=== PATIENT | female | born 1965 | race Caucasian/White ===

== ENCOUNTER 2017-10-12 13:08 | Emergency (ER) | payer SELFPAY ==
[2017-10-12 14:24] LABS: #Basophils 0.1 thou/uL (0.0-0.2); #Eosinphils 0.7 thou/uL (0.0-0.7); #Lymphocytes 1.8 thou/uL (1.20-3.40); #Monocytes 0.5 thou/uL (0.11-0.59); #Neutrophils 5.3 thou/uL (1.40-6.50); %Basophils 1.1 % (0.0-1.0); %Lymphocytes 21.1 % (21.0-51.0); %Monocytes 6.2 % (0.0-10.0); %Neutrophils 63.7 % (42.0-75.0); Mean Corpuscular Hemoglobin 32.1 pg (27.0-31.0); Mean Corpuscular Volume 94.6 fL (78.0-98.0); Mean Platelet Volume 8.5 fL (7.4-10.4); Platelet Count 239 thou/uL (130-400); RBC Distribution Width 12.3 % (11.5-14.5); Red Blood Cell (RBC) Count 4.68 mill/uL (4.20-5.40); White Blood Cell (WBC) Count 8.4 thou/uL (4.8-10.8)
[2017-10-12 14:30] LABS: PTT 28.5 SEC (22.9-36.1); Prothrombin Time 12.9 SEC (12.0-14.7)
[2017-10-12 14:40] LABS: ALT (SGPT) 58 U/L (8-55); AST (SGOT) 38 U/L (5-34); Albumin 4.5 g/dL (3.5-5.0); Alkaline Phosphatase 136 U/L (40-150); Anion Gap 11 mmol/L (10-20); BUN (Urea Nitrogen) 12 mg/dL (9.8-20.1); Bilirubin, Total 0.7 mg/dL (0.2-1.2); Calc. Creatinine Clearance 0 mL/min (70-130); Calcium 9.7 mg/dL (7.8-10.44); Carbon Dioxide 26 mmol/L (22-29); Chloride 105 mmol/L (98-107); Estimated GFR-MDRD 65; Globulin 3.3 g/dL (2.4-3.5); Glucose 97 mg/dL (70-105); Potassium 3.8 mmol/L (3.5-5.1); Protein, Total 7.8 g/dL (6.0-8.3); Sodium 138 mmol/L (136-145)
--- NOTE | 2017-10-12 17:00 | ULT ---
ULTRASOUND PELVIC ULTRASOUND TRANSVAGINAL DOPPLER DUPLEX: 10/12/2017 HISTORY: A 52-year-old female with left pelvic pain and menorrhagia. History of abnormal Pap smear. COMPARISON: None. TECHNIQUE: Transabdominal transducer used to evaluate intrapelvic contents using the urinary bladder as an acous tic window. Endovaginal transducer used to visualize intrapelvic contents in greater detail. Color fl ow Doppler and Pulsed Doppler spectral waveform analysis of ovaries. FINDINGS: The bilateral ovaries are not visualized. The uterus measures 12.5 x 6.5 x 7.5 cm. The endometrial stripe is 1.3 cm (13 mm). No definite uterine leiomyoma is visualized. No free fluid in the cul-de-sac. There are multiple tiny hyperechoic foci in the cervix. The largest of these is approximately 0.7 x 0.7 x 0.3 cm. There is also mildly increased blood flow in the parenchyma of the cervix. IMPRESSION: 1. A 13 mm endometrial stripe. 2. Bilateral ovaries are not visualized. 3. Nonspecific findings at the cervix. Recommend refuse laborer consultation for direct visualization of th e cervix. JERZY Mccain POS: ANGELIKA
[2017-10-12] MEDS ORDERED: Ketorolac Tromethamine 60 MG/2 ML VIAL ONE (17:35)
== END 2017-10-12 17:55 | disposition home or self-care (01) ==
LOC: ERS 13:08
DX: N93.8 Other specified abnormal uterine and vaginal bleeding (principal); F32.9 Major depressive disorder, single episode, unspecified; I10 Essential (primary) hypertension
CPT/HCPCS: 76856; 80053; 85025; 85610; 85730; 86850; 86900; 86901; 94760; 96374; J1885

== ENCOUNTER 2017-12-11 10:48 | Emergency (ER) | payer SELFPAY ==
[2017-12-11 12:21] LABS: #Basophils 0.1 thou/uL (0.0-0.2); #Eosinphils 0.7 thou/uL (0.0-0.7); #Lymphocytes 1.4 thou/uL (1.20-3.40); #Monocytes 0.4 thou/uL (0.11-0.59); %Basophils 1.4 % (0.0-1.0); %Eosinophils 8.6 % (0.0-10.0); %Lymphocytes 16.1 % (21.0-51.0); %Monocytes 4.5 % (0.0-10.0); %Neutrophils 69.4 % (42.0-75.0); Hemoglobin 13.2 g/dL (12.0-16.0); Mean Corpuscular HGB CONC 31.8 g/dL (32.0-36.0); Mean Corpuscular Hemoglobin 29.9 pg (27.0-31.0); Mean Platelet Volume 9.1 fL (7.4-10.4); Platelet Count 313 thou/uL (130-400); RBC Distribution Width 12.5 % (11.5-14.5); Red Blood Cell (RBC) Count 4.41 mill/uL (4.20-5.40); White Blood Cell (WBC) Count 8.6 thou/uL (4.8-10.8)
[2017-12-11 12:22] LABS: ALT (SGPT) 25 U/L (8-55); AST (SGOT) 25 U/L (5-34); Albumin 4.5 g/dL (3.5-5.0); Alkaline Phosphatase 100 U/L (40-150); Anion Gap 14 mmol/L (10-20); BUN (Urea Nitrogen) 10 mg/dL (9.8-20.1); Bilirubin, Total 0.5 mg/dL (0.2-1.2); Calc. Creatinine Clearance 0 mL/min (70-130); Calcium 9.2 mg/dL (7.8-10.44); Carbon Dioxide 23 mmol/L (22-29); Chloride 106 mmol/L (98-107); Estimated GFR-MDRD 68; Globulin 3.3 g/dL (2.4-3.5); Glucose 113 mg/dL (70-105); Lipase 8 U/L (8-78); Potassium 3.1 mmol/L (3.5-5.1); Protein, Total 7.8 g/dL (6.0-8.3); Sodium 140 mmol/L (136-145)
--- NOTE | 2017-12-11 13:25 | CT ---
CT ABDOMEN AND PELVIS WITH IV AND ORAL CONTRAST: HISTORY: Pelvic pain and mass. FINDINGS: The lung bases are clear. The liver, spleen, kidneys, adrenal glands, and pancreas have a normal CT appearance. No enlarged lymph nodes or free fluid. The urinary bladder is unremarkable. Fluid distention of the endometrial cavity of the uterus is estimated at 1.3 cm in thickness. Fluid and gas are apparent within the upper vaginal canal. The appendix is not inflamed. No evidence of bowel obstruction. IMPRESSION: Fluid distention of the endometrial cavity. POS: ANGELIKA
[2017-12-11] MEDS ORDERED: Iopamidol 370 76% 50 ML VIAL FS ONE (15:04)
[2017-12-11] MEDS ORDERED: ISOVUE-370 76%-LOCM 1 ML ONE (15:04)
== END 2017-12-11 13:44 | disposition home or self-care (01) ==
LOC: ERS 10:48
DX: N93.9 Abnormal uterine and vaginal bleeding, unspecified (principal); C76.0 Malignant neoplasm of head, face and neck
CPT/HCPCS: 74177; 80053; 83690; 85025; 96374

== ENCOUNTER 2018-04-24 23:03 | Inpatient (IN) | payer SELFPAY ==
[2018-04-24] MEDS ORDERED: Morphine 4 MG/ML VIAL ONE (23:41)
[2018-04-25 00:03] LABS: #Basophils 0.1 thou/uL (0.0-0.2); #Eosinphils 0.2 thou/uL (0.0-0.7); #Lymphocytes 1.3 thou/uL (1.20-3.40); #Monocytes 0.4 thou/uL (0.11-0.59); #Neutrophils 9.3 thou/uL (1.40-6.50); %Eosinophils 1.6 % (0.0-10.0); %Lymphocytes 11.4 % (21.0-51.0); %Monocytes 3.3 % (0.0-10.0); %Neutrophils 82.6 % (42.0-75.0); Hemoglobin 9.5 g/dL (12.0-16.0); Mean Corpuscular HGB CONC 30.4 g/dL (32.0-36.0); Mean Corpuscular Hemoglobin 28.1 pg (27.0-31.0); Mean Corpuscular Volume 92.4 fL (78.0-98.0); Mean Platelet Volume 8.9 fL (7.4-10.4); Platelet Count 289 thou/uL (130-400); RBC Distribution Width 15.7 % (11.5-14.5); Red Blood Cell (RBC) Count 3.38 mill/uL (4.20-5.40); White Blood Cell (WBC) Count 11.3 thou/uL (4.8-10.8)
[2018-04-25 00:21] LABS: ALT (SGPT) 42 U/L (8-55); AST (SGOT) 35 U/L (5-34); Albumin 3.6 g/dL (3.5-5.0); Alkaline Phosphatase 100 U/L (40-150); Anion Gap 13 mmol/L (10-20); BUN (Urea Nitrogen) 20 mg/dL (9.8-20.1); Bilirubin, Total 0.2 mg/dL (0.2-1.2); Calc. Creatinine Clearance 0 mL/min (70-130); Calcium 8.3 mg/dL (7.8-10.44); Carbon Dioxide 20 mmol/L (22-29); Chloride 109 mmol/L (98-107); Estimated GFR-MDRD 74; Globulin 2.4 g/dL (2.4-3.5); Glucose 134 mg/dL (70-105); Potassium 3.4 mmol/L (3.5-5.1); Sodium 139 mmol/L (136-145)
[2018-04-25] MEDS ORDERED: Ketorolac Tromethamine 30 MG/ML VIAL ONE (01:54)
[2018-04-25 04:07] LABS: Hemoglobin 8.6 g/dL (12.0-16.0)
--- NOTE | 2018-04-25 06:08 | HP ---
PRIMARY CARE PHYSICIAN: Kassie Blue MD CHIEF COMPLAINT: Vaginal bleeding. HISTORY OF PRESENT ILLNESS: Ms. Kacy Bruec is a 53-year-old female with past medical history of cervical cancer diagnosed in October of 2017, presents to the emergency department for vaginal bleeding. The patient has been having increased vaginal bleeding. The [facility], who has told her that the patient's cervical cancer is in early stages and that she needs to get on chemo and radiation. The patient has not been able to set up that as she has applied for Medicaid and has been declined twice. The patient was seen in the ER, her hemoglobin was 9.5. She had another episode of bleeding and repeat hemoglobin showed that her hemoglobin has dropped to 8.6. The patient was also noted to be having orthostatic hypotension. She also has symptoms of dizziness as well too while standing. ER did speak to COW BU[employer] hospitalist production wood craftsman, Dr. Aguilar who recommended medical admission but said that there is anything surgical that she can do at this point. He recommended no further vaginal examination at this point. PAST MEDICAL HISTORY: Cervical cancer. PAST SURGICAL HISTORY: Tonsillectomy, tubal ligation, colonoscopy, and history of depression. SOCIAL HISTORY: Denies alcohol, drugs, or smoking. CURRENT MEDICATIONS: Uses [id number] ibuprofen, has been using a lot more recently. FAMILY HISTORY: Positive for diabetes. REVIEW OF SYSTEMS: A 10-point review of systems negative other than mentioned in the HPI. ALLERGIES: THE PATIENT DOES NOT REPORT ANY ALLERGIES TO DRUGS. PHYSICAL EXAMINATION: VITAL SIGNS: Blood pressure 133/88, pulse 105, respiration rate 16, O2 saturation 99% on room air. GENERAL: The patient is alert and in not any acute distress. HEAD: Atraumatic. EARS, NOSE, AND THROAT: No exudate or discharge noted. NECK: No lymphadenopathy noted. CARDIOVASCULAR: Regular rhythm. The patient is tachycardic. No murmurs, rubs, or gallops. RESPIRATORY: Clear bilaterally. No wheezes. ABDOMEN: Soft and nontender. The patient does report some discomfort when palpating the suprapubic side. : Deferred per recommendation from the COW BUYER hospitalist. EXTREMITIES: No lower extremity edema noted. NEUROLOGIC: The patient is alert. SKIN: No rashes noted. LABORATORY DATA: Sodium 139, potassium 3.4, chloride 109, carbon dioxide 20, BUN 20, creatinine 0.81, glucose 134. AST 35, ALT 42. White blood cell count 11.3, hemoglobin 9.5, on repeat 8.6, hematocrit 31, platelets 289. ASSESSMENT AND PLAN: 1. Acute vaginal bleeding, likely from cervical cancer and tumor burden. Case was discussed with the on-call COW BUYER, Dr. Aguilar, who recommended medical admission and blood transfusion. He was consulted for admission. A consult has been placed for him to see the patient. We will transfuse 1 unit of blood. Check hemoglobin after transfusion. The patient likely would need oncology services. The patient is strongly advised to avoid NSAIDs like ibuprofen and Aleve. Recommend taking Tylenol instead. We will give IV fluids at this point. 2. Cervical cancer, known history. Plan as mentioned above. 3. Orthostatic hypotension, likely from acute bleeding. Plan as mentioned above. 4. The patient is a full code. Medical power of commercial attorney, . 5. Deep venous thrombosis prophylaxis, sequential compression devices only. Job ID: [id number]
[2018-04-25 06:41] VITALS: BMI 36.3
[2018-04-25] MEDS ORDERED: Acetaminophen 325 MG TAB PO PRN (06:44)
[2018-04-25] MEDS ORDERED: Ondansetron PF 4 MG/2 ML Vial IVP PRN ×2 (06:44)
[2018-04-25] MEDS ORDERED: Furosemide 20 MG/2 ML VIAL IVP SCH (06:44)
[2018-04-25] MEDS ORDERED: Sodium Chloride 0.9% 1,000 ML IV SCH ×2 (06:44→06:45)
[2018-04-25] MEDS ORDERED: HYDROcodone/Acetaminophen 5/325 mg Tablet PO PRN (06:44)
[2018-04-25] MEDS ORDERED: Ondansetron ODT 4 MG TAB PO PRN (06:44)
[2018-04-25] MEDS ORDERED: diphenhydrAMINE 25 MG CAP PO PRN (06:44)
--- NOTE | 2018-04-25 07:32 | PDOC.EVN ---
Event Note - Event Note Event Note: ObGyn Consultation RM 131 Requesting physician: Dr Marcos DX: Cervical CA (untreated) Patient has been seen at bedside and consult dictated I have requested stat case management eval for possible referral to [facility] with Dr Nathaniel Goodwin for eval and care as we do not have [facility] [employer] Onc services here. Without C[facility] [employer] Onc here, limited in the therapeutic interventions I can offer. In an attempt to reduce the bleed from the cervical cancer, monsels soaked gauze PV may be tried if necessary, but I prefer not to agrivate the cervix due to bleeding risk. Report dictated
--- NOTE | 2018-04-25 08:17 | CON ---
DATE OF CONSULTATION: 04/25/2018 TIME OF EVALUATION: 0710 hours. REASON FOR EVALUATION: The patient with known cervical cancer with vaginal bleeding. HISTORY OF PRESENT ILLNESS: In brief, this is a 53-year-old female who was diagnosed with cervical malignancy by Dr. Blue in the office in October of 2017, but has not had a gynecological-oncological followup due to "insurance issues." She presented to the ER with an episode of vaginal bleeding from the cervical mass. The patient was initially seen in the emergency room and was noted to have an initial hematocrit value of 31 and after sometime IV fluid hydration and possibly after an equilibration due to the vaginal bleeding, her hematocrit value was 28.0. Set of chemistries was also sent down in the ER and they were normal. I evaluated the patient this morning and asked about her gynecology-oncology followup and she stated that she had attempted to receive government funding, but this has failed. I was asked to consult due to the known history of cervical cancer and vaginal bleeding. PAST MEDICAL HISTORY: Significant for the cervical cancer. PAST SURGICAL HISTORY: Significant for tubal ligation and tonsillectomy. PAST PSYCHIATRIC HISTORY: Significant for past history of depression. SOCIAL HISTORY: Otherwise negative. FAMILY HISTORY: Significant for diabetes. PHYSICAL EXAMINATION: GENERAL: She is lying in bed, but is in no acute distress. There is no active bleeding, but although it is slight/minimal at this time. LABORATORY DATA: CBC is as previously dictated. Per the ER, a vaginitis panel was drawn and it was negative. From the blood blank, she has been typed and crossed for 1 unit and is transfusing 1 unit. ASSESSMENT: This is a 53-year-old female with untreated cervical cancer with a diagnosis back in October. PLAN: 1. As I had mentioned to the ER, minimizing cervical palpation/manipulation is the goal as this cervical malignancy is friable and easily bleeds with contact. 2. I have discussed the case with the patient's nurse and the Oncology team/nursing staff on Oncology. The patient needs gynecological-oncological services. I have requested case management to see the patient today if possible for possible transport and transfer to [place] with [facility]. Because it is Thursday, I am not sure if this will be able to be done. Once again, she had her diagnosis back in September and October of 2017. 3. As there was no Gynecology-Oncology service here, we are limited in our therapies. After the 1 unit, we will await case management and evaluation for possible transport to [facility]. Job ID: [id number]
[2018-04-25 12:33] LABS: Hemoglobin 9.4 g/dL (12.0-16.0)
[2018-04-25 12:51] VITALS: BP 144/70; TEMP 98.7
--- NOTE | 2018-04-25 12:51 | PDOC.EVN ---
Event Note - Event Note Event Note: Received report from Dr. Aguilar this AM. Spoke directly with Dr. Goodwin, DISTRIBUTOR SALES CONSULTANT/ONC in the [place], [place]. She has agreed to see pt. as an outpatient. As the pt. is bleeding but stable she has advised that pt. go directly [facility] in the [place] for evaluation by her today. Now s/p PRBC transfusion this AM, HCT returns just now at 30. VSS AF. On exam, pt. is bleeding only a small amount at this time. Pt. understands this and agrees.
--- NOTE | 2018-04-25 14:13 | DIS ---
DATE OF ADMISSION: 04/25/2018 DATE OF DISCHARGE: 04/25/2018 DISCHARGE DIAGNOSES: 1. Acute vaginal bleeding secondary to cervical carcinoma. 2. Acute blood loss anemia secondary to #1, status post 1 unit of packed red blood cells. 3. 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 CONSULTATIONS: Dr. Aguilar and Dr. Collins with SHIPPING SERVICES SALES REPRESENTATIVE Service. PERTINENT LAB AND X-RAY FINDINGS: Hemoglobin ranged between 8.6 to 9.5. Cervicovaginitis screen dated 04/25/2018, negative. HOSPITAL COURSE: The patient was admitted to the Medical Oncology Service after presenting with acute vaginal bleeding in the context of known squamous cell carcinoma of the cervix, not currently treated. The patient was evaluated including vaginal exam showing evidence of tumor with obscuring of anatomy due to adhesions. The patient underwent hemoglobin assessment with initial value of 9.5 with repeat hemoglobin showing a value of 8.6. The patient received 1 unit of packed red blood cells as well as intravenous fluids. The patient was evaluated by the SHIPPING SERVICES SALES REPRESENTATIVE Hospitalist Service, who recommended the patient seek medical attention at a dedicated MATERIAL HANDLER 2ND SHIFT oncologist, not currently available at [facility]. Discussions were had with a MATERIAL HANDLER 2ND SHIFT oncologist in the [place] at [facility], Dr. Cielo Goodwin, who recommended following up at [facility] for evaluation and consideration for definitive management Currently, the patient is unable to secure transportation with Case Management assisting with potential transportation resources. I have examined the patient at the time of discharge and discussed followup and disposition planning. The patient is ready for discharge on 04/25/2018. DISCHARGE MEDICATIONS: None. FOLLOWUP: The patient may follow up with Dr. Cielo Goodwin at [facility] in [facility] after discharge. CONDITION ON DISCHARGE: Stable. ACTIVITY: Ad-henrique. DIET: Regular. CODE STATUS: Full. DISPOSITION: Discharged to [facility] with followup with Dr. Cielo Goodwin. Job ID: [id number]
[2018-04-26 20:35] LABS: Chlamydia by PCR Not Detected (NotDetected); GC by PCR Not Detected (NotDetected)
== END 2018-04-25 17:09 | disposition home or self-care (01) | DRG 755 ==
LOC: ERS 23:03 → ONC 04-25 05:07
PROVIDERS: ADMIT Family Medicine; ATTEND Family Medicine
PROC: 30233N1 Transfusion of Nonautologous Red Blood Cells into Peripheral Vein, Percutaneous Approach (ICD-10-PCS; principal; 2018-04-25)
DX: C53.9 Malignant neoplasm of cervix uteri, unspecified (principal); D62 Acute posthemorrhagic anemia; N93.9 Abnormal uterine and vaginal bleeding, unspecified; I95.1 Orthostatic hypotension; D64.9 Anemia, unspecified; Z90.89 Acquired absence of other organs; Z98.51 Tubal ligation status
CPT/HCPCS: 36415; 36430; 80053; 85014; 85018; 85025; 86850; 86900; 86901; 87480; 87491; 87510; 87591; 87660; J1885; J2270; P9016

== ENCOUNTER 2018-06-01 11:01 | Outpatient (CLI) | payer SELFPAY ==
[~2018-06-01 11:01] MED LIST: ISOVUE-370 76%-LOCM 1 ML ONE
--- NOTE | 2018-06-01 12:15 | CT ---
FContrast-enhanced CT images of chest, abdomen and pelvis. History of vaginal bleeding uterine mass. Comparison made to previous CT from 12/11/2017. CT CHEST: The lungs are well aerated. No evidence of mediastinal, axillary or hilar lymphadenopathy s een. No evidence of lung parenchymal metastases seen. No evidence of pleural or pericardial effusions seen. CT abdomen and pelvis: The liver and spleen are unremarkable. The gallbladder is distended but is unr emarkable. The pancreas is atrophied but is otherwise unremarkable. Some small calcifications seen in the pancreatic head. This is stable since the previous comparison exam. No evidence of periaortic lymphadenopathy seen. The right kidney is unremarkable. There is slight decreased opacification of the left kidney with a development of mild to moderate lef t-sided hydroureteronephrosis. The left ureter is dilated along its entire course. There appears to b e some external compression by the left pelvic mass just medial to the left hip joint. This may repre sent possible postoperative scar versus developed pelvic mass extension, abutting and compressing the left distal ureter at the level of the left ureterovesicular junction. This has resulted in proximal left-sided hydronephrosis. Urological consultation may be of use in this patient. There continues to be some hypodense debris within the uterine canal. This is less pronounced compared to the previous exam from 12/11/2017. IMPRESSION: Interval development of left-sided hydronephrosis and possible extension or compression o f the distal left ureter by the pelvic enhancing likely cervical mass.
== END 2018-06-01 11:02 | disposition home or self-care (01) ==
LOC: BICCT 11:01
PROVIDERS: ATTEND Internal Medicine Hematology & Oncology
DX: C53.8 Malignant neoplasm of overlapping sites of cervix uteri (principal); N13.30 Unspecified hydronephrosis
CPT/HCPCS: 71260; 74177; Q9966

== ENCOUNTER 2018-06-16 01:45 | Outpatient (CLI) | payer SELFPAY ==
[2018-06-16 17:39] LABS: Bilirubin Negative (Negative); Blood, Urine Moderate (Negative); Clarity CLEAR (Clear); Glucose, Urine (Dipstick) Negative (Negative); Leukocyte Trace (Negative); Nitrite Negative (Negative); Protein, Urine (Dipstick) 30 mg/dL (Neg-Trace); Specific Gravity, Urine 1.021 (1.002-1.036); pH, Urine 5.5 (5.0-9.0)
[2018-06-16 17:45] LABS: Bacteria/HPF None Seen HPF (None Seen); Hyaline Casts/LPF 0-3 HYALINE CAST LPF (0-3 Hyaline); Pathc Cast-AUWi Flag 0.13 (0-2.49); Squamous Epithelial 0-3 HPF (0-3); WBC/HPF 0-3 HPF (0-3)
[2018-06-16 17:46] LABS: INR-International Normal Ratio 1.9; Prothrombin Time 21.4 SEC (12.0-14.7)
[2018-06-16 18:03] LABS: Anion Gap 13 mmol/L (10-20); BUN (Urea Nitrogen) 13 mg/dL (9.8-20.1); Calc. Creatinine Clearance 0 mL/min (70-130); Calcium 9.7 mg/dL (7.8-10.44); Carbon Dioxide 27 mmol/L (22-29); Chloride 102 mmol/L (98-107); Estimated GFR-MDRD 51; Glucose 99 mg/dL (70-105); Potassium 3.7 mmol/L (3.5-5.1); Sodium 138 mmol/L (136-145)
== END 2018-06-16 01:46 | disposition home or self-care (01) ==
LOC: LABBT 01:45
PROVIDERS: ATTEND Urology
DX: Z01.818 Encounter for other preprocedural examination (principal); N13.30 Unspecified hydronephrosis
CPT/HCPCS: 81001; 85610; 85730; 93005; 93010

== ENCOUNTER 2018-06-22 07:14 | Day surgery (SDC) | payer MEDICAID ==
[~2018-06-22 07:14] MED LIST changes: +CISplatin 75 MG, manNITOL 12.5 GM in Sodium Chloride 0.9% 500 ML IV SCH; -ISOVUE-370 76%-LOCM 1 ML ONE; +Palonosetron HCl 0.25 MG in Sodium Chloride 0.9% 50 ML IVPB SCH; +Sodium Chloride 0.9% 500 ML IV SCH
[2018-06-22] MEDS ORDERED: Sodium Chloride 0.9% 20 ML ONE (08:27)
[2018-06-22 10:59] VITALS: BP 183/79; TEMP 97.9
== END 2018-06-22 12:42 | disposition home or self-care (01) ==
LOC: ONC/OP 07:14
PROVIDERS: ATTEND Internal Medicine Hematology & Oncology
DX: Z51.11 Encounter for antineoplastic chemotherapy (principal); C53.8 Malignant neoplasm of overlapping sites of cervix uteri
CPT/HCPCS: 96361; 96367; 96375; 96413; J1100; J1453; J2150; J2469; J3480; J3490; J7050; J9060

== ENCOUNTER 2018-06-24 08:08 | Day surgery (SDC) | payer MEDICAID ==
[2018-06-16 16:44] VITALS: BMI 35.2
[2018-06-24] MEDS ORDERED: Levofloxacin 500 mg/D5W 100 ml Premix Bag ONE (08:23)
[2018-06-24] MEDS ORDERED: Midazolam HCl 2 mg/2 ml Vial ONE (08:39)
[2018-06-24] MEDS ORDERED: Fentanyl 100 MCG/2 ML VIAL ONE (08:40)
[2018-06-24] MEDS ORDERED: Famotidine/PF 20 mg/2ml Vial ONE (08:48)
[2018-06-24] MEDS ORDERED: Scopolamine 1.5 mg/72 hour Patch ONE (08:48)
[2018-06-24] MEDS ORDERED: PROPOFOL 200 MG/20 ML VIAL ONE (16:14)
[2018-06-24] MEDS ORDERED: Rocuronium Bromide 10 MG/ML (10ML VIAL) ONE (16:14)
[2018-06-24] MEDS ORDERED: Succinylcholine Chloride 20 MG/ML 10 ml SYRINGE FS ONE (16:14)
[2018-06-24] MEDS ORDERED: Lidocaine 1% PF 5 ML VIAL ONE (16:14)
--- NOTE | 2018-06-24 16:55 | OP ---
DATE OF PROCEDURE: 06/24/2018 SERVICE: Urology. PREOPERATIVE DIAGNOSIS: Cervical cancer with left ureteral obstruction. POSTOPERATIVE DIAGNOSIS: Cervical cancer with left ureteral obstruction. PROCEDURE PERFORMED: Cystoscopy with left ureteral stent placement. INDICATION FOR PROCEDURE: Ms. Bruce is a 53-year-old white female with stage IIIB cervical cancer with obstruction of the left ureter. She has just started chemotherapy and needs decompression of her left kidney. As she does have a mildly elevated creatinine, I discussed stenting versus nephrostomy tube, and she would like to try a stent first. If the stent is unsuccessful, she will probably need to go for a nephrostomy tube. Risks and benefits were discussed, and she has agreed to proceed forward. DESCRIPTION OF PROCEDURE: After identification of armband and verification of consent, the patient was brought back to the operating room, where she underwent general anesthesia with LMA. She was then placed in dorsal lithotomy position and prepped and draped in usual sterile fashion. After appropriate time-out, a lubricated 22-Italian rigid cystoscope was introduced per urethra into the bladder. There was a large mass effect in the bladder from the cervical cancer. The right ureteral orifice could be seen effluxing clear urine, but the left ureter does not efflux anything. The left ureter was cannulated with a 0.035 Sensor wire up to the level of the renal pelvis. A 6 x 26 double-J stent was advanced over the Sensor wire up to the level of renal pelvis and the wire removed leaving a partial curl in the proximal and a good curl within the bladder. The bladder was then emptied and the cystoscope was removed. The patient was awakened and taken to PACU for recovery in stable condition. COMPLICATIONS: None. ESTIMATED BLOOD LOSS: Minimal. RETAINED TUBES AND DRAINS: 6 x 26 double-J stent on the left. SPECIMEN: None. DISPOSITION: The patient will be discharged home and have an ultrasound on Thursday. If there is persistent hydronephrosis, we will plan for nephrostomy tube placement. If there is no hydro, then she can keep the stent in and it will probably need to be changed every 3 months until she completes her chemo and radiation and possibly her hysterectomy, at which point, we will ultimately remove her stent altogether. Job ID: [id number]
== END 2018-06-24 11:25 | disposition home or self-care (01) ==
LOC: SDC 08:08
PROVIDERS: ATTEND Urology
PROC: 0T778DZ Dilation of Left Ureter with Intraluminal Device, Via Natural or Artificial Opening Endoscopic (ICD-10-PCS; principal; 2018-06-24)
DX: C53.9 Malignant neoplasm of cervix uteri, unspecified (principal); N13.1 Hydronephrosis with ureteral stricture, not elsewhere classified; I10 Essential (primary) hypertension; Z86.73 Personal history of transient ischemic attack (TIA), and cerebral infarction without residual deficits; Z79.899 Other long term (current) drug therapy
CPT/HCPCS: 74420; C1769; J1956; J2001; J2250; J2704; J3010; S0028

== ENCOUNTER 2018-06-29 08:57 | Day surgery (SDC) | payer MEDICAID ==
[~2018-06-29 08:57] MED LIST changes: -CISplatin 75 MG, manNITOL 12.5 GM in Sodium Chloride 0.9% 500 ML IV SCH; +Dexamethasone 10 MG/ML VIAL SLOW IVP SCH; +PALONOSETRON HCL 0.05 MG/ML 5 ML VIAL IVP SCH; -Palonosetron HCl 0.25 MG in Sodium Chloride 0.9% 50 ML IVPB SCH
[2018-06-29] MEDS ORDERED: CISplatin 75 MG, manNITOL 12.5 GM in Sodium Chloride 0.9% 500 ML IV SCH (09:00)
== END 2018-06-29 10:10 | disposition home or self-care (01) ==
LOC: ONC/OP 08:57
PROVIDERS: ATTEND Internal Medicine Hematology & Oncology
DX: Z51.11 Encounter for antineoplastic chemotherapy (principal); C53.8 Malignant neoplasm of overlapping sites of cervix uteri
CPT/HCPCS: J1453; J3490; J7050

== ENCOUNTER 2018-07-06 10:33 | Day surgery (SDC) | payer MEDICAID ==
[~2018-07-06 10:33] MED LIST changes: +CISplatin 75 MG, manNITOL 12.5 GM in Sodium Chloride 0.9% 500 ML IV SCH; -Dexamethasone 10 MG/ML VIAL SLOW IVP SCH; -PALONOSETRON HCL 0.05 MG/ML 5 ML VIAL IVP SCH; +Palonosetron HCl 0.25 MG in Sodium Chloride 0.9% 50 ML IVPB SCH
[2018-07-06] MEDS ORDERED: Sodium Chloride 0.9% 20 ML ONE (10:40)
[2018-07-06 10:47] VITALS: BP 184/88; TEMP 98.5
== END 2018-07-06 16:11 | disposition home or self-care (01) ==
LOC: ONC/OP 10:33
PROVIDERS: ATTEND Internal Medicine Hematology & Oncology
DX: Z51.11 Encounter for antineoplastic chemotherapy (principal); C53.8 Malignant neoplasm of overlapping sites of cervix uteri
CPT/HCPCS: 77412; 80053; 82248; 83615; 83735; 84100; 84550; 96361; 96367; 96375; 96413; J1100; J1453; J2150; J2469; J3490; J7050; J9060

== ENCOUNTER 2018-07-20 11:17 | Day surgery (SDC) | payer MEDICAID ==
[2018-07-20] MEDS ORDERED: Sodium Chloride 0.9% 20 ML ONE (11:32)
[2018-07-20 11:47] VITALS: BP 175/87; TEMP 98.3
== END 2018-07-20 15:47 | disposition home or self-care (01) ==
LOC: ONC/OP 11:17
PROVIDERS: ATTEND Internal Medicine Hematology & Oncology
DX: Z51.11 Encounter for antineoplastic chemotherapy (principal); C53.8 Malignant neoplasm of overlapping sites of cervix uteri; Z79.899 Other long term (current) drug therapy
CPT/HCPCS: 96361; 96367; 96375; 96413; J1100; J1453; J2150; J2469; J3490; J7050; J9060

== ENCOUNTER 2018-07-23 09:07 | Outpatient (CLI) | payer MEDICAID ==
--- NOTE | 2018-07-23 10:42 | MRI ---
MRI OF PELVIS WITH AND WITHOUT IV CONTRAST: INDICATION: History of cervical cancer; staging and radiation planning evaluation COMPARISON: CT chest, abdomen, and pelvis dated 06/01/2018. FINDINGS: There is an irregular circumferential spiculated mass seen involving the cervix measuring 5.3 x 5.6 c m in its greatest craniocaudad and mediolateral dimensions respectively. Spiculated mass extends beyond the cervical stroma in into the surrounding parametrium, contacting and likely invading the po sterior bladder. The cervical mass extends into the left parametrium and envelops the left ureter. There is a stent within the left ureter projecting into the left aspect of the bladder. Small amount of fluid is seen within the endometrium. The mass does extend cephalad into the lower uterine segment. The fat plane between the cervix and the lower rectum appears preserved. The mass does exten d to the anterior margin of the mesorectal fascia without definite penetration. There is a 9 mm enlarged left external iliac lymph node suspicious for malignant lymphadenopathy. 4 mm lymph node see n adjacent to the right external iliac vascular chain. No definite bone marrow signal abnormality is grossly evident. IMPRESSION: Stage IV cervical cancer. There is irregular circumferential spiculated mass at the level of the cerv ix extending beyond the margin of the stroma and into the parametrium invading the posterior aspect of the bladder and enveloping left ureter. There is an enlarged left external iliac lymph node suspic ious for malignant lymphadenopathy. Transcribed Date/Time: 07/23/2018 11:00 AM
== END 2018-07-23 09:08 | disposition home or self-care (01) ==
LOC: SCSMRI 09:07 → MRI 09:08
PROVIDERS: ATTEND Radiology Radiation Oncology
DX: C76.0 Malignant neoplasm of head, face and neck (principal); R59.1 Generalized enlarged lymph nodes
CPT/HCPCS: 72197

== ENCOUNTER 2018-07-27 20:28 | Emergency (ER) | payer MEDICAID ==
[2018-07-27 21:32] LABS: #Lymphocytes 0.4 thou/uL (1.20-3.40); #Monocytes 0.6 thou/uL (0.11-0.59); #Neutrophils 6.9 thou/uL (1.40-6.50); %Basophils 0.3 % (0.0-1.0); %Eosinophils 0.3 % (0.0-10.0); %Lymphocytes 4.7 % (21.0-51.0); %Monocytes 7.3 % (0.0-10.0); %Neutrophils 87.5 % (42.0-75.0); Hemoglobin 10.7 g/dL (12.0-16.0); Mean Corpuscular HGB CONC 32.1 g/dL (32.0-36.0); Mean Corpuscular Hemoglobin 26.7 pg (27.0-31.0); Mean Corpuscular Volume 83.2 fL (78.0-98.0); Mean Platelet Volume 8.2 fL (7.4-10.4); Platelet Count 298 thou/uL (130-400); RBC Distribution Width 18.5 % (11.5-14.5); White Blood Cell (WBC) Count 7.9 thou/uL (4.8-10.8)
[2018-07-27 21:53] LABS: ALT (SGPT) 119 U/L (8-55); AST (SGOT) 58 U/L (5-34); Albumin 4.2 g/dL (3.5-5.0); Alkaline Phosphatase 427 U/L (40-150); Anion Gap 17 mmol/L (10-20); BUN (Urea Nitrogen) 15 mg/dL (9.8-20.1); Bilirubin, Total 0.6 mg/dL (0.2-1.2); Calc. Creatinine Clearance 0 mL/min (70-130); Calcium 10.2 mg/dL (7.8-10.44); Carbon Dioxide 24 mmol/L (22-29); Chloride 98 mmol/L (98-107); Estimated GFR-MDRD 58; Globulin 3.6 g/dL (2.4-3.5); Glucose 117 mg/dL (70-105); Lipase Less than 4 U/L (8-78); Potassium 3.6 mmol/L (3.5-5.1); Protein, Total 7.8 g/dL (6.0-8.3); Sodium 135 mmol/L (136-145)
[2018-07-27 22:12] LABS: Bilirubin Small (Negative); Blood, Urine Moderate (Negative); Clarity CLOUDY (Clear); Glucose, Urine (Dipstick) Negative (Negative); Leukocyte Moderate (Negative); Nitrite Negative (Negative); Protein, Urine (Dipstick) 300 mg/dL (Neg-Trace); Specific Gravity, Urine 1.031 (1.002-1.036); pH, Urine 5.5 (5.0-9.0)
[2018-07-27 22:22] LABS: Bacteria/HPF 1+ HPF (None Seen); Hyaline Casts/LPF 0-3 HYALINE CAST LPF (0-3 Hyaline); WBC/HPF 21-50 HPF (0-3); Yeast-All Forms None Seen HPF (None Seen)
[2018-07-27] MEDS ORDERED: Ondansetron PF 4 MG/2 ML Vial ONE (23:07)
[2018-07-27] MEDS ORDERED: Morphine 4 MG/ML VIAL ONE (23:07)
[2018-07-28] MEDS ORDERED: Morphine 4 MG/ML VIAL ONE (00:47)
--- NOTE | 2018-07-28 08:21 | CT ---
PRELIMINARY REPORT/[facility]/EMERGENCY AFTER HOURS PROCEDURE: EXAM: CT Lumbar Spine Without Contrast EXAM DATE/TIME: 07/28/2018 1:04 AM CLINICAL HISTORY: 53 years old, female; Low back pain; Patient HX: F53 presents to ED with for acute worsening of chron ic left lower back pain. PT reports pain intermittently radiates down bilateral legs but denies numbn ess or weakness, no urinary or bowel complaints, no edema, shortness of breath. PT reports she had a left sided ureter stent placed 1 month ago for cervical cancer than spread to the ureter. PT is curre ntly undergoing chemotherapy for cervical CA. PT takes morphine and norco twice a day for pain, only took 1 of each today. reports that PT has a pelvic mri to monitor CA treatment progress TECHNIQUE: Imaging protocol: Axial computed tomography images of the lumbar spine without intravenous contrast. COMPARISON: No relevant prior studies available. FINDINGS: Vertebrae: No acute fracture. Normal alignment. Benign-appearing sclerotic lesion in the L1 vertebral body treated in many vertebral bodies are unremarkable. Discs/Spinal canal/Neural foramina: No spinal stenosis. No neural foraminal narrowing. Soft tissues: Left-sided double-J stent appears in satisfactory position. The pelvic organs are repor tedly imaged. IMPRESSION: Essentially normal lumbar spine for age. There are additional nonemergent findings discussed in the body of the report. Thank you for allowing us to participate in the care of your patient. Dictated and Authenticated by: Luis Quinteros MD 07/28/2018 1:57 AM Central Time ([place] & [place]) CT LUMBAR SPINE WITHOUT CONTRAST: COMPARISON: None. HISTORY: Acute worsening of chronic left back pain. Intermittent pain radiating down the extremities. COMPARISON: None. FINDINGS: This report is in agreement with the preliminary report by [facility]. No evidence of lumbar spine fracture . Benign-appearing sclerotic lesion at L1, likely representing a bone island. Lesion is unchanged fro m a CT performed in November 2017. Mild degenerative change involving the left and right facet are not ed at the lumbosacral junction. No significant central canal stenosis or foraminal narrowing. Left-si ded ureteral stent is identified. Abnormal attenuation in midline of the pelvis may be associated wit h endocervical carcinoma, compatible with patient's history. IMPRESSION: No evidence of fracture. POS: OFF
== END 2018-07-28 02:29 | disposition home or self-care (01) ==
LOC: ERS 20:28
DX: M54.5 Low back pain (principal); I10 Essential (primary) hypertension; F32.9 Major depressive disorder, single episode, unspecified; Z79.1 Long term (current) use of non-steroidal anti-inflammatories (NSAID); Z79.891 Long term (current) use of opiate analgesic
CPT/HCPCS: 36415; 72131; 80053; 81003; 81015; 83690; 85025; 85652; 86140; 96361; 96374; 96375; 96376; J2270; J2405

== ENCOUNTER 2018-08-04 08:29 | Day surgery (SDC) | payer OTHER ==
[2018-08-04] MEDS ORDERED: Sodium Chloride 0.9% 30 ML ONE (08:51)
[2018-08-04 09:06] VITALS: BP 161/78; TEMP 98.7
[2018-08-04] MEDS ORDERED: HYDROcodone/Acetaminophen 5/325 mg Tablet PO PRN (09:35)
[2018-08-04] MEDS ORDERED: HYDROcodone/Acetaminophen 5/325 mg Tablet PO SCH (09:45)
== END 2018-08-04 13:43 | disposition home or self-care (01) ==
LOC: ONC/OP 08:29
PROVIDERS: ATTEND Internal Medicine Hematology & Oncology
DX: Z51.11 Encounter for antineoplastic chemotherapy (principal); C53.8 Malignant neoplasm of overlapping sites of cervix uteri; Z79.899 Other long term (current) drug therapy
CPT/HCPCS: 96367; 96375; 96413; J1100; J1453; J2150; J2469; J3490; J7050; J9060

== ENCOUNTER 2018-09-20 16:24 | Emergency (ER) | payer OTHER ==
[~2018-09-20 16:24] MED LIST changes: -CISplatin 75 MG, manNITOL 12.5 GM in Sodium Chloride 0.9% 500 ML IV SCH; +ISOVUE-370 76%-LOCM 1 ML ONE; -Palonosetron HCl 0.25 MG in Sodium Chloride 0.9% 50 ML IVPB SCH; -Sodium Chloride 0.9% 500 ML IV SCH
[2018-09-20] MEDS ORDERED: Morphine 4 MG/ML VIAL ONE (17:23)
[2018-09-20 17:29] LABS: #Eosinphils 0.1 thou/uL (0.0-0.7); #Lymphocytes 0.6 thou/uL (1.20-3.40); #Monocytes 0.7 thou/uL (0.11-0.59); #Neutrophils 8.4 thou/uL (1.40-6.50); %Basophils 0.4 % (0.0-1.0); %Eosinophils 1.2 % (0.0-10.0); %Lymphocytes 6.5 % (21.0-51.0); %Monocytes 7.1 % (0.0-10.0); %Neutrophils 84.9 % (42.0-75.0); Hemoglobin 9.2 g/dL (12.0-16.0); Mean Corpuscular HGB CONC 32.6 g/dL (32.0-36.0); Mean Corpuscular Hemoglobin 28.8 pg (27.0-31.0); Mean Corpuscular Volume 88.4 fL (78.0-98.0); Mean Platelet Volume 8.1 fL (7.4-10.4); Platelet Count 363 thou/uL (130-400); RBC Distribution Width 16.4 % (11.5-14.5); White Blood Cell (WBC) Count 9.9 thou/uL (4.8-10.8)
[2018-09-20 17:51] LABS: ALT (SGPT) 31 U/L (8-55); AST (SGOT) 27 U/L (5-34); Albumin 3.6 g/dL (3.5-5.0); Alkaline Phosphatase 294 U/L (40-150); Anion Gap 17 mmol/L (10-20); BUN (Urea Nitrogen) 13 mg/dL (9.8-20.1); Bilirubin, Total 0.7 mg/dL (0.2-1.2); CK (CPK) 49 U/L (29-168); CRP (Inflammatory) 18.78 mg/dL (= or < 0.5); Calc. Creatinine Clearance 0 mL/min (70-130); Calcium 10.1 mg/dL (7.8-10.44); Carbon Dioxide 26 mmol/L (22-29); Chloride 97 mmol/L (98-107); Estimated GFR-MDRD 67; Glucose 100 mg/dL (70-105); Protein, Total 7.6 g/dL (6.0-8.3); Sodium 137 mmol/L (136-145)
[2018-09-20 17:54] LABS: Potassium 2.9 mmol/L (3.5-5.1)
--- NOTE | 2018-09-20 18:07 | CT ---
CT ABDOMEN AND PELVIS WITH IV CONTRAST: INDICATIONS: Lower abdominal pain. History of cervical cancer with vaginal discharge. The history also states ur eter cancer on the left, with a ureteral stent. COMPARISON: CT abdomen and pelvis from 06/01/2018. TECHNIQUE: Multiple axial tomograms obtained through the abdomen and pelvis with IV enhancement. FINDINGS: The lung bases are clear. The liver, spleen, and pancreas are unremarkable. There is gallbladder distention, which has a similar appearance to the prior study. No gallstones se en by CT, although cholesterol stones would not be apparent on CT. The adrenal glands are normal. A left ureteral stent is in place, with mild left hydronephrosis and left hydroureter. The right urinary tract is unremarkable. The kidneys are otherwise unremarkable. The urinary bladder is mildly distended with a mildly thickened wall. The uterus is enlarged, and the endometrium is very prominent. This appears to have become more pron ounced since the prior study. There is a small left ovarian cyst, measuring in the 2.0 cm range. No free fluid. No mass or adenopathy. There is a focus of sclerosis in the L1 vertebra, which is stable from the prior exam and may represe nt a bone island. The bowel loops are unremarkable. IMPRESSION: 1. Mild left hydronephrosis and hydroureter. 2. Left ureteral stent appears adequately positioned. 3. Soft tissue prominence in the bladder wall, at the left ureterovesicular junction, consistent wit h a history of malignancy. 4. Prominent uterus and prominent endometrium noted. POS: [facility]
[2018-09-20] MEDS ORDERED: Potassium Chloride 20 MEQ TAB ONE ×2 (18:24→18:25)
[2018-09-20] MEDS ORDERED: Fentanyl 100 MCG/2 ML VIAL ONE (18:43)
[2018-09-20] MEDS ORDERED: HYDROcodone/Acetaminophen 10/325 mg Tablet ONE (19:44)
[2018-09-20] MEDS ORDERED: metroNIDAZOLE 250 MG TAB ONE (19:44)
[2018-09-23 00:27] LABS: Chlamydia by PCR Not Detected (NotDetected); GC by PCR Not Detected (NotDetected)
== END 2018-09-20 19:51 | disposition home or self-care (01) ==
LOC: ERS 16:24
DX: N89.8 Other specified noninflammatory disorders of vagina (principal); R10.9 Unspecified abdominal pain; I10 Essential (primary) hypertension; F32.9 Major depressive disorder, single episode, unspecified; Z79.899 Other long term (current) drug therapy
CPT/HCPCS: 74177; 80053; 82550; 83605; 84484; 85025; 85652; 86140; 87070; 87480; 87491; 87510; 87591; 87660; 93005; 96361; 96374; 96375; J2270; J3010; Q9966

== ENCOUNTER 2018-10-11 15:48 | Outpatient (CLI) | payer OTHER ==
[2018-10-11 17:53] LABS: Hemoglobin 10.5 g/dL (12.0-16.0); Mean Corpuscular HGB CONC 31.7 g/dL (32.0-36.0); Mean Corpuscular Volume 91.8 fL (78.0-98.0); Mean Platelet Volume 7.9 fL (7.4-10.4); Platelet Count 346 thou/uL (130-400); RBC Distribution Width 16.6 % (11.5-14.5); Red Blood Cell (RBC) Count 3.61 mill/uL (4.20-5.40); White Blood Cell (WBC) Count 7.6 thou/uL (4.8-10.8)
[2018-10-11 17:59] LABS: INR-International Normal Ratio 1.1; Prothrombin Time 13.9 SEC (12.0-14.7)
[2018-10-11 18:00] LABS: PTT 34.4 SEC (22.9-36.1)
[2018-10-11 18:13] LABS: Anion Gap 16 mmol/L (10-20); BUN (Urea Nitrogen) 16 mg/dL (9.8-20.1); Calc. Creatinine Clearance 0 mL/min (70-130); Calcium 10.1 mg/dL (7.8-10.44); Carbon Dioxide 27 mmol/L (22-29); Chloride 101 mmol/L (98-107); Estimated GFR-MDRD 56; Glucose 104 mg/dL (70-105); Potassium 3.8 mmol/L (3.5-5.1); Sodium 140 mmol/L (136-145)
--- NOTE | 2018-10-12 22:58 | EKG ---
Test Reason : Blood Pressure : / mmHG Vent. Rate : 080 BPM Atrial Rate : 080 BPM P-R Int : 144 ms QRS Dur : 086 ms QT Int : 372 ms P-R-T Axes : 058 041 004 degrees QTc Int : 429 ms Normal sinus rhythm Nonspecific ST and T wave abnormality Abnormal ECG When compared with ECG of 20-SEP-2018 17:27, Nonspecific T wave abnormality now evident in Lateral leads Confirmed by Demetria NELSON ([id number]) on 10/12/2018 10:58:07 PM Referred By: DEBO Confirmed By:Demetria NELSON
== END 2018-10-11 15:49 | disposition home or self-care (01) ==
LOC: LABBT 15:48
PROVIDERS: ATTEND Urology
DX: Z01.818 Encounter for other preprocedural examination (principal); C53.9 Malignant neoplasm of cervix uteri, unspecified; N13.39 Other hydronephrosis
CPT/HCPCS: 80048; 81001; 85027; 85610; 85730; 87086; 93005; 93010

== ENCOUNTER 2018-10-28 14:10 | Inpatient (IN) | payer MEDICAID, OTHER ==
[2018-10-28 15:06] LABS: #Eosinphils 0.3 thou/uL (0.0-0.7); #Lymphocytes 0.5 thou/uL (1.20-3.40); #Monocytes 0.7 thou/uL (0.11-0.59); #Neutrophils 11.3 thou/uL (1.40-6.50); %Basophils 0.2 % (0.0-1.0); %Eosinophils 2.5 % (0.0-10.0); %Lymphocytes 4.2 % (21.0-51.0); %Monocytes 5.2 % (0.0-10.0); Hemoglobin 10.2 g/dL (12.0-16.0); Mean Corpuscular HGB CONC 32.3 g/dL (32.0-36.0); Mean Corpuscular Hemoglobin 29.1 pg (27.0-31.0); Mean Corpuscular Volume 90.2 fL (78.0-98.0); Mean Platelet Volume 7.6 fL (7.4-10.4); Platelet Count 474 thou/uL (130-400); RBC Distribution Width 15.8 % (11.5-14.5); Red Blood Cell (RBC) Count 3.51 mill/uL (4.20-5.40); White Blood Cell (WBC) Count 12.8 thou/uL (4.8-10.8)
[2018-10-28] MEDS ORDERED: ISOVUE-370 76%-LOCM 1 ML ONE (15:24)
[2018-10-28 15:27] LABS: ALT (SGPT) 56 U/L (8-55); AST (SGOT) 63 U/L (5-34); Albumin 3.6 g/dL (3.5-5.0); Alkaline Phosphatase 550 U/L (40-150); Anion Gap 17 mmol/L (10-20); BUN (Urea Nitrogen) 12 mg/dL (9.8-20.1); Bilirubin, Total 0.6 mg/dL (0.2-1.2); Calc. Creatinine Clearance 0 mL/min (70-130); Calcium 10.1 mg/dL (7.8-10.44); Carbon Dioxide 26 mmol/L (22-29); Chloride 97 mmol/L (98-107); Estimated GFR-MDRD 65; Globulin 3.8 g/dL (2.4-3.5); Glucose 126 mg/dL (70-105); Lipase Less than 4 U/L (8-78); Protein, Total 7.4 g/dL (6.0-8.3); Sodium 137 mmol/L (136-145)
[2018-10-28 15:31] LABS: Potassium 2.5 mmol/L (3.5-5.1)
[2018-10-28] MEDS ORDERED: Magnesium 2 GM/50 ML BAG (IN WATER) ONE (16:06)
[2018-10-28] MEDS ORDERED: Ondansetron PF 4 MG/2 ML Vial ONE (16:07)
[2018-10-28] MEDS ORDERED: Morphine 4 MG/ML VIAL ONE (16:07)
[2018-10-28] MEDS ORDERED: Potassium Chloride 20 MEQ TAB ONE (16:07)
--- NOTE | 2018-10-28 16:18 | CT ---
CT OF ABDOMEN AND PELVIS WITH CONTRAST: 10/28/18 COMPARISON: 09/20/18. INDICATION: History of cervical cancer with abdominal and pelvic pain. FINDINGS: No significant abnormality at the visualized lung bases. The gallbladder is markedly distended. There is a left ureteral stent again demonstrated, with stable configuration. Prominent abnormal soft tiss ue thickening of the lower uterine segment with internal air density and complex lining is again demo nstrated indicative of neoplasm. There is surrounding pelvic fat stranding. The left ureteral stent d oes traverse the abnormal area of soft tissue which is inseparable from the posterior aspect of the u rinary bladder. Prominence of the left renal collecting system and associated left renal atrophy is a gain demonstrated. Stable sclerotic density of L1. IMPRESSION: Redemonstration of dilatation of the left urinary collection system, with indwelling stent traversing irregular soft tissue mass of the pelvis. Mild degree of left hydroureteronephrosis is stable appear ing. Prominent distention of the gallbladder. Correlate clinically. POS: [facility]
[2018-10-28] MEDS ORDERED: NS 0.9% w/ 20 MEQ KCL 1,000 ML/1,000 ML BAG IV SCH (16:30)
--- NOTE | 2018-10-28 16:46 | PDOC.FPRHP ---
- History of Present Illness Chief Complaint: abdominal pain History of Present Illness: Patient presents to the ED for evaluation of increasing abdominal pain. She has a known history of cervical cancer with ureteral involvement. She states that at home she replaces her fentanyl patch every 3 days and uses norco 10/325 q 4 hour, however this has not resolved her pain in the last two days. She increased her fentanyl and currently had on 3 patches of varying age. She states she has a ureteral stent in place, due to be removed 11/[address] Ramirez. She denies pain with eating. She states the pain is constant, 10/10, non- radiating, associated with the end of urination. She is unsure of any burning with urination or foul smelling urine. She reports foul discharge, chronically, since the cancer started. ED Course: Clonidine 0.1mg, Kcl 20IV, 40 oral, Mg 2g IV, zofran 8mg - Allergies/Adverse Reactions Allergies Allergy/AdvReac Type Severity Reaction Status Date / Time No Known Allergies Allergy Verified 10/11/18 16:57 - Home Medications Medication Instructions Recorded Confirmed Type HYDROcodone Bit/APAP 10/325 [[place] 2 tab PO Q4HR 06/16/18 10/28/18 History 10/325] Lisinopril 10 mg PO DAILY 06/16/18 10/28/18 History fentaNYL [Fentanyl] 1 each TD Q3D 10/28/18 10/28/18 History - History PMHx: HTN h/o CVA 2005 PSHx: BTL Left knee Ureteral stent Tonsillectomy FHx: Brother: DM MGM: Cervical cancer Parents: DM HTN Social: Denies tobacco use, etoh use in past socially (none currently), denies illicit drug use. - Review of Systems General: denies: fever/chills, weight/appetite/sleep changes, night sweats Eyes: denies: eye pain, vision changes ENT: denies: nasal congestion, rhinorrhea Respiratory: denies: cough, congestion, shortness of breath Cardiovascular: denies: chest pain, palpitation, edema, paroxysmal nocturnal dyspnea, orthopnea Gastrointestinal: reports: nausea, vomiting, abdominal pain. denies: diarrhea, constipation, GI bleeding Genitourinary: reports: dysuria. denies: incontinence, polyuria Skin: denies: rashes, lesions, jaundice Musculoskeletal: denies: pain, tenderness, stiffness, swelling Neurological: denies: numbness, syncope Psychological: reports: depression. denies: anxiety - Vital signs BP: 150/112, 195/113, 206/117, Pulse: 76, Resp: 16, Temp: 98.9 (Oral), Pain: 10 , O2 sat: 96 on Room Air - Physical Exam Constitutional: NAD, awake, alert and oriented, well developed HEENT: normocephalic and atraumatic, PERRLA, EOMI, conjunctiva clear, no scleral icterus, grossly normal vision, grossly normal hearing, MMM Neck: supple, trachea midline, no LAD Chest: no-tender to palpation, no lesions Heart: RRR, normal S1/S2, no murmurs/rubs/gallops, pulses present, other (trace edema in BLE) Lungs: CTAB, no respiratory distress, good air movement, no rales/rhonchi, no wheezing Abdomen: soft, bowel sounds present, other (tender to palpation in lower abdomen ) Musculoskeletal: normal structure, normal tone, ROM grossly normal Neurological: no focal deficit, CN II-XII intact Skin: no rash/lesions, good turgor Heme/Lymphatic: no unusual bruising or bleeding, no purpura Psychiatric: normal mood and affect, good judgment and insight, intact recent and remote memory FMR H&P: Results - Labs Result Diagrams: 10/28/18 14:43 10/28/18 21:30 Lab results: WBC 12.8 thou/uL (4.8-10.8) H 10/28/18 14:43 Hgb 10.2 g/dL (12.0-16.0) L 10/28/18 14:43 Hct 31.6 % (36.0-47.0) L 10/28/18 14:43 MCV 90.2 fL (78.0-98.0) 10/28/18 14:43 Plt Count 474 thou/uL (130-400) H 10/28/18 14:43 Neutrophils % 88.0 % (42.0-75.0) H 10/28/18 14:43 Sodium 137 mmol/L (136-145) 10/28/18 14:43 Potassium 2.5 mmol/L (3.5-5.1) L* 10/28/18 14:43 Chloride 97 mmol/L (98-107) L 10/28/18 14:43 Carbon Dioxide 26 mmol/L (22-29) 10/28/18 14:43 BUN 12 mg/dL (9.8-20.1) 10/28/18 14:43 Creatinine 0.90 mg/dL (0.6-1.1) 10/28/18 14:43 Glucose 126 mg/dL (70-105) H 10/28/18 14:43 Calcium 10.1 mg/dL (7.8-10.44) 10/28/18 14:43 Total Bilirubin 0.6 mg/dL (0.2-1.2) 10/28/18 14:43 AST 63 U/L (5-34) H 10/28/18 14:43 ALT 56 U/L (8-55) H 10/28/18 14:43 Alkaline Phosphatase 550 U/L (40-150) H 10/28/18 14:43 Serum Total Protein 7.4 g/dL (6.0-8.3) 10/28/18 14:43 Albumin 3.6 g/dL (3.5-5.0) 10/28/18 14:43 Lipase Less than 4 U/L (8-78) L 10/28/18 14:43 - EKG Interpretation EKG: NSR - Radiology Interpretation CT scan - abdomen Status: report reviewed by me (Redemonstration of dilatation of the left urinary collection system, with indwelling stent traversing irregular soft tissue mass of the pelvis. Mild degree of left hydroureteronephrosis is stable appear ing. Prominent distention of the gallbladder. Correlate clinically.) FMR H&P: A/P - Problem List (1) Intractable abdominal pain Current Visit: Yes Status: Acute Code(s): R10.9 - UNSPECIFIED ABDOMINAL PAIN (2) Cervical cancer Current Visit: Yes Status: Acute Code(s): C53.9 - MALIGNANT NEOPLASM OF CERVIX UTERI, UNSPECIFIED (3) Hydronephrosis Current Visit: Yes Status: Acute Code(s): N13.30 - UNSPECIFIED HYDRONEPHROSIS (4) Hypokalemia Current Visit: Yes Status: Acute Code(s): E87.6 - HYPOKALEMIA (5) Hypomagnesemia Current Visit: Yes Status: Acute Code(s): E83.42 - HYPOMAGNESEMIA - Plan Intractable abdominal pain Will start home regimen - Fentanyl patch, [place] 10/325 q4hr, and Morphine IV 2mg q2hr prn for breakthrough pain. Consider consulting anesthesia for pain pump tomorrow. CT did not show ureteral stent displacement and stable hydronephrosis. It did show enlarged gallbladder. She denies pain w/ food and RUQ tenderness. Will continue to monitor. Leukocytosis - Suspect potential infection causing symptoms. UA / UC ordered. Will schedule bowel regimen to prevent constipation. Hypokalemia 2.5 in ED. Replaced with 20meq IV and 40meq po. Will recheck tonight and replace as needed. Hypomagnesemia 1.2 in ED Replaced with 2g IVPB. Will recheck and replace as needed. Cervical cancer, with ureteral involvement Has had 1 round of chemotherapy, not currently undergoing treatment. HTN On Lisinopril 10mg po daily at home. Will continue Will add hydralazine 10mg IV for SBP > 180. Dispo: Stable Code: Full VTE: Lovenox Diet: HH FMR H&P: Upper Level - Pertinent history Ms. Bruce presents for increased abdominal pain She reports yesterday that she was feeling improved after adding an additional fentanyl patch since progressively being in more pain and feeling weaker for the past few weeks. She has a pmhx sig for cervical cancer followed by Dr. Hi. Not currently on chemotherapy, has had one round since being diagnosed earlier this year. She follows with pain mgmt as well. Additionally reports foul smelling vaginal discharge and dysuria. - Pertinent findings General: NAD HEENT: NCAT Chest: even inspiratory and expiratory effort, no retractions, CTAB, RRR Abdomen: non distended, TTP over lower abdomen MSK: no weakness, or loss of ROM noted Extremities: non-edematous, pulses present Neuro: grossly intact, no focal deficits See programming intern portion for full ROS, PE, labs and vitals. - Plan Date/Time: 10/28/18 3730 IMitchel DO, have evaluated this patient and agree with findings/plan as outlined by programming intern resident. Pertinent changes/additions are listed here. Intractable pain - continue pain regimen, add morphine for breakthrough - CT ab/pel shows stable ureteral stent/hydronephrosis - further eval for source, UA, procal pending - begin bowel regimen Leukocytosis - consider UTI as most likely source vs stent - enlarged GB on CT, physical exam not c/w GB disease Hypokalemia/magnesemia - monitor and replace as needed - EKG wnl, monitor on tele See programming intern portion for mgmt. of chronic issues Dispo: admit to tele obs for monitoring, eval for source of pain Addendum - Attending - Attending Attestation Date/Time: 10/28/18 0751 I personally evaluated the patient and discussed the management with Dr. Foster I agree with the History, Examination, Assessment and Plan documented above with any addition or exceptions noted below -53 yo female with h/o cervical cancer involving left ureter presents c/o worsening abdominal pain over the last 2-3 days. denies any dysuria, fever/chills, N/V. Normal BM. her usual pain regimen is fentanyl patch 25 mcg q72 hours and norco 10/325 q 4 hour, however this has not resolved her pain in the last two days. She states she has a ureteral stent in place, due to be removed 11/[address] Ramirez. She denies pain with eating. She states the pain is constant, 10/10, non-radiating, associated with the end of urination. PMH/PSH/Meds/SH reviewed and agree with resident's documentation. Afebrile VSS. Exam repeated by me and agree woth resident's findings. Labs: WBC=12.8, H/H=10.2/31.6, Lrg=736, Cr=358, K=2.5, Cl= 97, CO2=26, BUN/Cr=12/0.9, Qfve=826, AST/ALT=63/56, Alk pqrt=909, Procal=0.19, Mg=1.2. CT abd/Pelvis- stable left hydronephrosis A/P: 1) Hypokalemia- continue to replace potassium and recheck levels. 2) Hypomagnesemia- replaced magnesium and recheck level 3) Intractable pain - fentanyl patch increased and will give morphine prn .
[2018-10-28] MEDS ORDERED: cloNIDine 0.1 MG TAB ONE (17:15)
[2018-10-28] MEDS ORDERED: Famotidine 20 MG TAB PO PRN (17:23)
[2018-10-28] MEDS ORDERED: Ondansetron ODT 4 MG TAB PO PRN (17:23)
[2018-10-28] MEDS ORDERED: Senokot S 8.6-50 MG TAB PO PRN ×2 (17:23→18:15)
[2018-10-28] MEDS ORDERED: Loperamide HCl 2 MG CAP PO PRN (17:23)
[2018-10-28] MEDS ORDERED: Ondansetron PF 4 MG/2 ML Vial IVP PRN (17:23)
[2018-10-28 17:25] LABS: Bacteria/HPF None Seen HPF (None Seen); Bilirubin Negative (Negative); Blood, Urine Negative (Negative); Clarity Clear (Clear); Glucose, Urine (Dipstick) Normal (Negative); Leukocyte 25 Leu/uL (Negative); Nitrite Negative (Negative); Pregnancy Test - Urine (BHCG) Negative (Negative); Pregu Control Background? CLEAR/WHITE (CLR/WHITE); Pregu Control Bar Appear? YES (CONTROL BAR); Protein, Urine (Dipstick) 10 mg/dL (Neg-Trace); RBC/HPF 0-3 HPF (0-3); Specific Gravity 1.042 (1.002-1.036); Squamous Epithelial 0-3 HPF (0-3); Urobilinogen Normal mg/dL (Less than 2)
[2018-10-28] MEDS: Morphine 2 MG/ML SYRINGE SLOW IVP PRN ×2 (20:25→23:01)
[2018-10-28] MEDS: Sodium Chloride 0.9% 1,000 ML IV SCH (20:27)
[2018-10-28] MEDS ORDERED: Methyl Salicylate/Menthol 85 GM TUBE TOP PRN (20:55)
[2018-10-28] MEDS ORDERED: fentaNYL 50 mcg/hour Patch TD SCH (21:00)
[2018-10-28] MEDS: HYDROcodone/Acetaminophen 10/325 mg Tablet PO PRN (21:11)
[2018-10-28 21:54] LABS: Anion Gap 11 mmol/L (10-20); BUN (Urea Nitrogen) 10 mg/dL (9.8-20.1); Calc. Creatinine Clearance 70 mL/min (70-130); Carbon Dioxide 29 mmol/L (22-29); Chloride 101 mmol/L (98-107); Estimated GFR-MDRD 61; Glucose 122 mg/dL (70-105); Potassium 3.3 mmol/L (3.5-5.1); Sodium 138 mmol/L (136-145)
[2018-10-29] MEDS: HYDROcodone/Acetaminophen 10/325 mg Tablet PO PRN ×6 (01:15→22:07)
[2018-10-29] MEDS: Morphine 2 MG/ML SYRINGE SLOW IVP PRN ×8 (01:19→22:11)
[2018-10-29 05:13] LABS: Anion Gap 14 mmol/L (10-20); BUN (Urea Nitrogen) 10 mg/dL (9.8-20.1); Calc. Creatinine Clearance 79 mL/min (70-130); Calcium 9.1 mg/dL (7.8-10.44); Carbon Dioxide 25 mmol/L (22-29); Chloride 104 mmol/L (98-107); Estimated GFR-MDRD 70; Glucose 103 mg/dL (70-105); Potassium 3.1 mmol/L (3.5-5.1); Sodium 140 mmol/L (136-145)
[2018-10-29] MEDS: Sodium Chloride 0.9% 1,000 ML IV SCH ×2 (05:28→17:25)
[2018-10-29] MEDS ORDERED: Potassium Chloride 20 MEQ TAB PO SCH (06:15)
--- NOTE | 2018-10-29 06:15 | PDOC.FM ---
- Subjective Subjective: Patient reports that her pain was controlled before she went to see pain management. According to patient she was taking morphine Q8H and 10 of norco q4h from Dr. Whipple, which was controlling her pain. She states that pain management switched her from morphine to 25mcg fentanyl patches, and she needed to put 2 on at a time but still wasn't feeling relief. Overnight with 50mcg fentynl, norco, and morphine she reports that her pain has been somewhat controlled. Pain is the worst right after urination. He has been afebrile. She reports that Dr. Ramirez had placed a ureteral stent because of a met. She was supposed to have it removed and replaced this past month but she was ill and could not make the drive. Her next appointment for stent removal is 11/11. - Objective Vital Signs & Weight: Vital Signs (12 hours) Temp Pulse Resp BP BP Pulse Ox 10/29/18 02:46 98.5 F 90 16 133/67 97 10/28/18 23:21 98.6 F 92 18 135/65 96 10/28/18 19:30 98.3 F 93 19 186/84 H 99 Weight Weight 65.771 kg I&O: 10/27/18 10/28/18 10/29/18 06:59 06:59 06:59 Intake Total 1244 Balance 1244 Result Diagrams: 10/28/18 14:43 10/29/18 04:31 EKG Reviewed by me: Yes (sinus 80s-90s, ST depression) Phys Exam - Physical Examination In pain HEENT: moist MMs, sclera anicteric Neck: supple, full ROM Respiratory: no wheezing, clear to auscultation bilateral Cardiovascular: RRR, no significant murmur Gastrointestinal: soft mildly tender to mid-epigastric region Musculoskeletal: no edema, pulses present Neurological: normal sensation, moves all 4 limbs Lymphatic: no nodes Psychiatric: normal affect, A&O x 3 Skin: normal turgor, cap refill <2 seconds Dx/Plan (1) Intractable abdominal pain Code(s): R10.9 - UNSPECIFIED ABDOMINAL PAIN Status: Acute (2) Cervical cancer Code(s): C53.9 - MALIGNANT NEOPLASM OF CERVIX UTERI, UNSPECIFIED Status: Acute (3) Hydronephrosis Code(s): N13.30 - UNSPECIFIED HYDRONEPHROSIS Status: Acute (4) Hypokalemia Code(s): E87.6 - HYPOKALEMIA Status: Acute (5) Hypomagnesemia Code(s): E83.42 - HYPOMAGNESEMIA Status: Acute - Plan Plan: #Intractable abdominal pain -started on home regime Fentanyl patch, [place] 10/325 q4hr, added Morphine IV 2mg q2hr prn for breakthrough pain. -consult oncology today, appreciate recs -Consider consulting anesthesia for pain pump today if needed -CT did not show ureteral stent displacement and stable hydronephrosis. It did show enlarged gallbladder. She denies pain w/ food and RUQ tenderness. Will continue to monitor. -Leukocytosis - patient has been afebrile overnight -UA shows -scheduled bowel regimen #Hypokalemia 2.5 in ED, Replaced with 20meq IV and 40meq po. 3.1 this am, 40meq po KCL ordered -will continue to monitor #Hypomagnesemia 1.2 in ED, 1.6 today -Will recheck and replace as needed. #Cervical cancer, with ureteral involvement Has had 1 round of chemotherapy, not currently undergoing treatment. -Dr. Ramirez placed current ureteral stent, due to be removed 11/11 -will consult urology today, appreciate recs #HTN On Lisinopril 10mg po daily at home. Will continue -BP 130s/60s overnight Will add hydralazine 10mg IV for SBP > 180. Dispo: Stable, obs for urology consult, oncology consult, and pain management Code: Full VTE: Lovenox Diet:
[2018-10-29 07:46] LABS: Phosphorus 3.3 mg/dL (2.3-4.7)
[2018-10-29] MEDS: Enoxaparin Sodium 40 MG/0.4 ML SYRINGE SC SCH ×2 (08:43→08:51)
[2018-10-29] MEDS ORDERED: fentaNYL 100 mcg/hour Patch TD SCH (09:00)
--- NOTE | 2018-10-29 09:56 | PRG ---
DATE OF SERVICE: 10/29/2018 Ms. Bruce is an unfortunate 53-year-old lady with metastatic cervical cancer and intractable pain. Her outpatient pain regimen had not been controlling her and she presented with intractable pain. We are adjusting her pain medications and restarting her morphine. We will consult with Oncology regarding further treatment and prognosis. Job ID: [id number]
--- NOTE | 2018-10-29 10:13 | PDOC.PALCO ---
Palliative Care Consult - Consult Details Requesting Physician: Dr Truong Reason for Consult: goals of care Family Members Present: - Pertinent HPI 53 year old female who was diagnosed with cervical cancer with ureteral involvement. Patient received one round of chemo but states she is not currently followed by any oncologist. Pain management was seeing patient. Increase in abdominal pain at home with increase in pain after urination, and not relieved with pain medication. states he increased fentanyl patch at home to 50mcg and patient continued to need morphine and norco for breakthrough pain. - Pertinent PMH Cervical cancer, HTN, CVA - Social History Smoking Status: Unknown if ever smoked Living Situation: - Allergies Allergies/Adverse Reactions: Allergies Allergy/AdvReac Type Severity Reaction Status Date / Time No Known Allergies Allergy Verified 10/11/18 16:57 - Subjective Initial encounter patient was crying secondary to pain (11/09). Assisted to ambulate to restroom, was given morphine for breakthrough pain by Cherry RN caring for patient. at bedside. History also obtained by Suze Hill RNargon tester. Denies nausea, headache. Only pain to lower abdomen and increases after urination. ROS: 10 point review otherwise negative with the exception of the above mentioned. - Objective Vital Signs: Vital Signs - Most Recent Temp Pulse Resp BP Pulse Ox 98.4 F 85 18 156/73 H 96 10/29/18 07:46 10/29/18 07:46 10/29/18 07:46 10/29/18 07:46 10/29/18 07:46 Palliative Performance Scale: 60 - Physical Exam Constitutional: mild distress Deviation from normal: Distress is related to pain HEENT: PERRLA, moist MMs, EOMI Respiratory: clear to auscultation bilateral, unlabored breathing Cardiovascular: RRR Deviation from normal: Tenderness iwth light palpation Musculoskeletal: pulses present Neurological: moves all 4 limbs Psychiatric: A&O x 3 Skin: normal turgor, cap refill <2 seconds - Problem List (1) Palliative care encounter Code(s): Z51.5 - ENCOUNTER FOR PALLIATIVE CARE Current Visit: Yes Status: Acute (2) Cervical cancer Code(s): C53.9 - MALIGNANT NEOPLASM OF CERVIX UTERI, UNSPECIFIED Current Visit : Yes Status: Acute (3) Intractable abdominal pain Code(s): R10.9 - UNSPECIFIED ABDOMINAL PAIN Current Visit: Yes Status: Acute - Plan/Recommendations Plan: Patient not currently followed by oncology, dose failure related to pain medication. *Suze Hill obtaining Oncology records from [facility] Oncology *Increased Fentanyl patch secondary to dose failure of previous dose *Educated patient and secondary to time to have increase in Fentanyl patch impact pain and need to continue with medicaiton for breakthrough pain *Communicated with Dr Truong Patient and have been fo r6 years. His previous from cancer after battling 4 years. [90] minutes spent on this encounter with >50% of the time in counseling and coordination of care. Thank you for this very appropriate consult.
[2018-10-29] MEDS: fentaNYL 75 mcg/hour Patch TD SCH (14:03)
[2018-10-29] MEDS: Phenazopyridine HCl 97.5 MG TABLET PO SCH (17:24)
[2018-10-29] MEDS: Docusate 100 MG CAP PO SCH (20:05)
--- NOTE | 2018-10-29 22:02 | CON ---
DATE OF CONSULTATION: REASON FOR CONSULT: Squamous cell carcinoma of the cervix. HISTORY OF PRESENT ILLNESS: Ms. 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 She was on chemotherapy and radiation from May to July. She missed several doses of chemotherapy and radiation. She has had significant pain throughout this entire process and was referred to Pain Management. She has vaginal discharge, but refused to go back to her cigar head piercer, Dr. Cielo Goodwin in [place]. She was referred to Dr. Blue, but has not followed up with her. She was to have restaging with a PET scan last week and follow up with Dr. Hi to discuss adjuvant chemo. However, she did miss the PET scan secondary to pain. She presented to the emergency room with abdominal pain. She had a CT scan performed which showed a left hydroureteronephrosis. She is managed by Dr. Ramirez and has a stent in place. She has been treated with fentanyl patch. PAST MEDICAL HISTORY: 1. Invasive squamous cell carcinoma of the cervix. 2. Noncompliance. She has missed several doses of chemotherapy and radiation. 3. Iron deficiency anemia. 4. Hypertension. 5. CVA. 6. Gastric ulcers. PAST SURGICAL HISTORY: 1. Knee surgery. 2. Tonsillectomy. 3. Tubal ligation. 4. Cervical biopsy. ALLERGIES: NO KNOWN DRUG ALLERGIES. HOME MEDICATIONS: 1. Fentanyl. 2. Hydrocodone. 3. Lisinopril. FAMILY HISTORY: Grandmother had ovarian cancer. SOCIAL HISTORY: , lives with her spouse. No alcohol, tobacco, or illicit drug use. REVIEW OF SYSTEMS: CONSTITUTIONAL: No fever, chills, weight loss. EYES: No blurred or double vision. ENT: No pain, hoarseness, sore throat, or dysphagia. CV: No chest pain, palpitations, or syncope. RESPIRATORY: No shortness of breath, dyspnea on exertion, or orthopnea. GI: No nausea, vomiting, diarrhea, or constipation. : Positive for vaginal pain and drainage. MUSCULOSKELETAL: Positive for back pain. SKIN: No rash or pruritus. HEMATOLOGICAL: No bleeding, bruising, or clotting. NEUROLOGICAL: Positive for weakness, dizziness, or headache. PSYCH: Positive for anxiety. PHYSICAL EXAMINATION: VITAL SIGNS: Temperature is 98.8, pulse is 86, respiratory rate 16, BP is 173/ 81. She is 96% on room air. GENERAL: This is a well-developed, well-nourished female, in mild distress. HEENT: Normocephalic, atraumatic. Pupils are equal and reactive to light. NECK: Supple. CV: Regular rate and rhythm. LUNGS: Clear. ABDOMEN: Soft and nontender. Bowel sounds are positive. EXTREMITIES: No clubbing, cyanosis, or edema. SKIN: No rash. HEMATOLOGICAL: No petechiae or purpura. NEUROLOGICAL: Nonfocal. PERTINENT LABS AND X-RAYS: Current WBCs 12.8, hemoglobin 10.2, hematocrit 31.6, platelet count 474,000, neutrophils 88%, lymphocytes 4%. Sodium 140, potassium 3.1, chloride 104, CO2 is 25, BUN is 10, creatinine 0.85, calcium 9.1, total bilirubin is 0.6, AST 63, ALT is 56, alkaline phosphatase is 550. Serum total protein is 7.4 , albumin 3.6, globulin 3.8. ASSESSMENT: 1. Stage IIIB invasive squamous cell carcinoma of the cervix, status post chemo and radiation, although she did not get all of her treatment. 2. Pelvic pain. 3. Vaginal drainage. DISCUSSION: The patient has been placed on a fentanyl patch and her pain will be managed by palliative care or pain management. She did miss her restaging PET, so I will postpone her appointment with Dr. Hi. She needs evaluation by correspondence section supervisor for pelvic exam. This can be done outpatient. The hydroureteronephrosis is being managed by Urology. No further recommendations. We will sign off. Thank you for the consult. Job ID: [id number] MTDD
--- NOTE | 2018-10-29 22:59 | CON ---
DATE OF CONSULTATION: 10/29/2018 CONSULTING PHYSICIAN: Dr. Truong. REASON FOR CONSULTATION: Intractable pain and ureteral stents. HISTORY OF PRESENT ILLNESS: Mrs. Bruce is a 53-year-old white female, who is well known to me for a history of fairly severe and advanced cervical cancer with bilateral ureteral obstruction. We had previously placed ureteral stents in her for relief of that obstruction and she is scheduled for ureteral stent exchange on November 18. She is currently undergoing radiation treatment for her cervical cancer and unfortunately has had progressive and worsening pain in her pelvis to the point where she could no longer keep her pain controlled with oral pain medication. She went to the ER and was admitted for 10/10 constant pain in her lower back and suprapubic area without radiation. She denies any current flank pain and states she is not having any difficulty urinating. She does get severe spasms towards the end of urination, which is painful and does have mild urgency and frequency, but states there is no actual difficulty with urination. She has not noticed any hematuria. She is having some problems with her bowel movements and has had enemas for this. She is currently admitted for ongoing and severe pain. Pain Medicine is already seeing her as an outpatient. HOME MEDICATIONS: 1. [place]. 2. Lisinopril. 3. Fentanyl. ALLERGIES: NONE. PAST MEDICAL HISTORY: 1. Hypertension. 2. CVA. 3. Cervical cancer. PAST SURGICAL HISTORY: 1. Left knee surgery. 2. Tonsillectomy. 3. Bilateral tubal ligation. 4. Ureteral stent placements. FAMILY HISTORY: Significant for diabetes and cervical cancer. SOCIAL HISTORY: The patient denies alcohol abuse, tobacco abuse, or any illicit drugs. REVIEW OF SYSTEMS: A 12-point review of systems is significant for some nausea, but no vomiting. Positive for constipation and severe abdominal pain. Genitourinary symptoms are as above in the HPI. Remainder of 12-point review of system was reviewed and otherwise negative. PHYSICAL EXAMINATION: VITAL SIGNS: Temperature 99.3, pulse 89, respirations 16, blood pressure 161/75, saturation 96% on room air. GENERAL: Appears extremely uncomfortable and is in pain, cannot find a comfortable position, is communicative otherwise and alert, answering questions appropriately. HEENT: Normocephalic, atraumatic. Pupils are symmetric and small and round. Sclerae nonicteric. Trachea midline. Moist mucous membranes. CARDIOVASCULAR: Regular rate and rhythm. Normal S1 and S2. Symmetric pulses. CHEST: No increased work of breathing. Symmetric expansion. LUNGS: Clear anteriorly. ABDOMEN: Soft, nondistended, severe tenderness to palpation in the suprapubic and lower abdominal area. No obvious organomegaly, or hepatosplenomegaly. No hernias. BACK: No CVA tenderness. : Deferred at this time. EXTREMITIES: No clubbing, cyanosis, or edema. MUSCULOSKELETAL: No joint deformities or joint erythema noted. Range of motion was not tested. The patient is currently in a wheelchair, about to be transferred to a different room. NEUROLOGIC: Cranial nerves 2 through 12 appear grossly intact. No focal or sensory motor deficits identified. SKIN: Warm and dry. Good turgor. No rashes or lesions. PSYCHIATRIC: Alert and oriented x3. Appears in a lot of pain currently, which is expected given her medical conditions. LABORATORY EVALUATION: The full set of labs are in the [facility] system, which I reviewed. Of note, the patient's white count is 12.8 with hemoglobin 10.2. Creatinine is currently 0.85. On radiology review, CT from October 28 demonstrates dilation of the left urinary collecting system with indwelling stent, traversing irregular soft tissue mass in the pelvis, mild degree of left hydroureteronephrosis, which is stable and no worse than before. There is prominent distention of the gallbladder. ASSESSMENT AND PLAN: A 53-year-old white female with bilateral ureteral obstruction, status post left ureteral stent, which is currently in position with a very mild degree of hydroureteronephrosis, which is stable. This does not appear any worse than prior. Given the large pelvic mass and the ureteral stent, I do not believe that her current pain is being caused by her stents as she has had this in place for quite some time. She is not to have her stent removed, but actually exchange as the pelvic mass has not completely disappeared and will likely continue to pose some element of obstruction. Instead, we had planned a ureteral stent exchange on November 11. The question currently is whether or not she could have the stent changed out while she is on this admission. Unfortunately, I would not necessarily recommend that we consider any kind of bladder or pelvic manipulation given the severe degree of pain that she is in as it will likely worsen her pain. Once her pain is under better control, I think we could more safely do ureteral stent exchange without any severe pain. Once she has completed her radiation and chemotherapeutic treatments, we can consider a stent removal to see if she still has continued drainage. If the patient is accepted for hospice or palliative care, which she currently states she is not interested in, I would recommend removal of the stent altogether. For the current time, I will go ahead and start her on antispasmodic with oxybutynin ER 10 mg once a day and Pyridium 100 mg t.i.d. for helping with burning with urination and the spasms in her bladder. This should help symptomatically. We will reassess symptoms next week and see, if she is still in the hospital, we could consider a stent exchange while she is inpatient. Otherwise, we will just have her go home and she can always follow up on November 11 for the stent exchange at that time. For now, I will sign off as there is nothing further that I would recommend on this admission unless her bladder symptoms worsen and if so, please re-consult. We will be happy to address any other potential problems that there may be. Job ID: [id number]
[2018-10-30] MEDS: Morphine 2 MG/ML SYRINGE SLOW IVP PRN ×8 (00:04→22:37)
[2018-10-30] MEDS: hydrALAZINE 20 MG/ML VIAL SLOW IVP PRN ×2 (01:06→12:49)
[2018-10-30] MEDS: HYDROcodone/Acetaminophen 10/325 mg Tablet PO PRN ×2 (02:01→06:17)
[2018-10-30] MEDS: Sodium Chloride 0.9% 1,000 ML IV SCH ×3 (02:09→20:34)
[2018-10-30 05:29] LABS: #Eosinphils 0.2 thou/uL (0.0-0.7); #Lymphocytes 0.6 thou/uL (1.20-3.40); #Monocytes 0.7 thou/uL (0.11-0.59); #Neutrophils 10.4 thou/uL (1.40-6.50); %Basophils 0.1 % (0.0-1.0); %Eosinophils 1.9 % (0.0-10.0); %Lymphocytes 4.7 % (21.0-51.0); %Monocytes 5.6 % (0.0-10.0); %Neutrophils 87.7 % (42.0-75.0); Hemoglobin 8.7 g/dL (12.0-16.0); Mean Corpuscular HGB CONC 31.1 g/dL (32.0-36.0); Mean Corpuscular Hemoglobin 28.9 pg (27.0-31.0); Mean Corpuscular Volume 92.9 fL (78.0-98.0); Mean Platelet Volume 7.7 fL (7.4-10.4); Platelet Count 393 thou/uL (130-400); RBC Distribution Width 16.1 % (11.5-14.5); White Blood Cell (WBC) Count 11.8 thou/uL (4.8-10.8)
--- NOTE | 2018-10-30 05:37 | PDOC.FM ---
- Subjective Subjective: She rates her pain 8/10 today. She says the pain is deep inside her. She does say she does feel tender on her abdomen though. We discussed getting PET scan and she was agreeable. We scheduled her [place] for today and will see how her pain is tomorrow. If better, we will consider PET scan tomorrow. - Objective MAR Reviewed: Yes Vital Signs & Weight: Vital Signs (12 hours) Temp Pulse Resp BP BP Pulse Ox 10/30/18 04:29 94 L 10/30/18 03:39 98.3 F 101 H 16 138/70 95 10/30/18 02:10 179/84 H 10/30/18 01:06 93 10/30/18 00:00 98 F 93 18 191/91 H 196/92 H 95 10/29/18 20:43 98.3 F 95 16 165/75 H 93 L 10/29/18 18:10 98 175/86 H Weight Admit Weight 65.771 kg Weight 65.771 kg I&O: 10/28/18 10/29/18 10/30/18 06:59 06:59 06:59 Intake Total 2544 Balance 2544 Result Diagrams: 10/30/18 04:45 10/30/18 04:45 Phys Exam - Physical Examination Constitutional: NAD HEENT: PERRLA Neck: full ROM Respiratory: clear to auscultation bilateral Cardiovascular: RRR, no significant murmur, no rub Gastrointestinal: positive bowel sounds tender to palpitation throughout, but mostly LLQ where stent is placed Musculoskeletal: no edema, pulses present Neurological: moves all 4 limbs Psychiatric: normal affect, A&O x 3 Skin: no rash Dx/Plan (1) Cervical cancer Code(s): C53.9 - MALIGNANT NEOPLASM OF CERVIX UTERI, UNSPECIFIED Status: Acute (2) Hypokalemia Code(s): E87.6 - HYPOKALEMIA Status: Acute (3) Hypomagnesemia Code(s): E83.42 - HYPOMAGNESEMIA Status: Acute (4) Intractable abdominal pain Code(s): R10.9 - UNSPECIFIED ABDOMINAL PAIN Status: Acute (5) HTN (hypertension) Code(s): I10 - ESSENTIAL (PRIMARY) HYPERTENSION Status: Acute - Plan Plan: Mrs. Bruce is 53 yo F with cervical cancer with ureteral mets who presents due to intractable pain. 1. Intractable abdominal pain -started on home regime Fentanyl patch, [place] 10/325 q4hr, added Morphine IV 2mg q2hr prn for breakthrough pain. -consult oncology today, appreciate recs. Currently will await PET restaging. -CT did not show ureteral stent displacement and stable hydronephrosis. It did show enlarged gallbladder. She denies pain w/ food and RUQ tenderness. Will continue to monitor. -Leukocytosis - patient has been afebrile overnight. Cuttently downtrending 12.8 >11.8 -scheduled bowel regimen 2. Hypokalemia 2.5 in ED, Replaced with 20meq IV and 40meq po. 2.9 this am, 40meq po KCL given this am -will continue to monitor, recheck cmp this afternoon 3. Hypomagnesemia -Will recheck and replace as needed. 4. Cervical cancer, with ureteral involvement Has had 1 round of chemotherapy, not currently undergoing treatment. -Dr. Ramirez placed current ureteral stent, due to be removed 11/11 -Consulted urology, appreciate recs. They started Oxybutnin 10 mg and Pyridium 100 mg TID 5. HTN On Lisinopril 10mg po daily at home. Will continue -BP 130s/70s overnight -prn Hydralazine Code: Full VTE: Lovenox, refused Diet: HH Dispo: Stable, inpt for pain management. Will consider PET tomorrow if more stable
[2018-10-30 05:49] LABS: Anion Gap 13 mmol/L (10-20); BUN (Urea Nitrogen) 8 mg/dL (9.8-20.1); Calc. Creatinine Clearance 86 mL/min (70-130); Calcium 9.1 mg/dL (7.8-10.44); Carbon Dioxide 25 mmol/L (22-29); Chloride 104 mmol/L (98-107); Estimated GFR-MDRD 76; Glucose 107 mg/dL (70-105); Sodium 139 mmol/L (136-145)
[2018-10-30 05:53] LABS: Potassium 2.9 mmol/L (3.5-5.1)
[2018-10-30] MEDS ORDERED: Potassium Chloride 40 MEQ in Sodium Chloride 0.9% 250 ML 250 ML IVPB SCH (06:15)
[2018-10-30] MEDS ORDERED: Senokot 8.6 MG TAB PO PRN (07:55)
[2018-10-30] MEDS: Docusate 100 MG CAP PO SCH ×2 (08:48→20:33)
[2018-10-30] MEDS: Oxybutynin ER 5 MG TAB PO SCH (08:48)
[2018-10-30] MEDS: HYDROcodone/Acetaminophen 10/325 mg Tablet PO SCH ×4 (08:48→20:51)
[2018-10-30] MEDS: Enoxaparin Sodium 40 MG/0.4 ML SYRINGE SC SCH (08:51)
[2018-10-30] MEDS: Lisinopril 5 MG TAB PO SCH (09:19)
[2018-10-30] MEDS: Phenazopyridine HCl 97.5 MG TABLET PO SCH ×3 (09:19→18:25)
[2018-10-30 11:54] LABS: ALT (SGPT) 38 U/L (8-55); AST (SGOT) 33 U/L (5-34); Albumin 2.9 g/dL (3.5-5.0); Alkaline Phosphatase 424 U/L (40-150); Anion Gap 12 mmol/L (10-20); BUN (Urea Nitrogen) 7 mg/dL (9.8-20.1); Bilirubin, Total 0.5 mg/dL (0.2-1.2); Calc. Creatinine Clearance 91 mL/min (70-130); Calcium 9.1 mg/dL (7.8-10.44); Carbon Dioxide 22 mmol/L (22-29); Chloride 106 mmol/L (98-107); Estimated GFR-MDRD 82; Globulin 3.1 g/dL (2.4-3.5); Glucose 102 mg/dL (70-105); Sodium 136 mmol/L (136-145)
--- NOTE | 2018-10-30 11:57 | PRG ---
DATE OF SERVICE: 10/30/2018 Ms. Bruce has been seen also in consultation by the Oncology Service. The Oncology Service said the patient did miss her restaging PET scan, so she will not be evaluated yet by Dr. Hi. Her pain control still seems to be suboptimal. We will attempt to get the PET scan, so further decisions can be made about chemotherapy. In the event, we are continuing to adjust her pain medications. Job ID: [id number]
[2018-10-31] MEDS: Morphine 2 MG/ML SYRINGE SLOW IVP SCH ×2 (00:33→03:02)
[2018-10-31] MEDS: HYDROcodone/Acetaminophen 10/325 mg Tablet PO SCH ×2 (00:34→05:01)
[2018-10-31] MEDS: Sodium Chloride 0.9% 1,000 ML IV SCH ×3 (02:26→21:26)
[2018-10-31] MEDS: Morphine 2 MG/ML SYRINGE SLOW IVP PRN ×4 (05:02→16:27)
--- NOTE | 2018-10-31 05:52 | PDOC.FM ---
- Subjective Subjective: Pt states her pain is a 7/10 today. She says she does not feel any better though. She is eating okay. She does not know when her last bowel movement was. - Objective MAR Reviewed: Yes Vital Signs & Weight: Vital Signs (12 hours) Temp Pulse Resp BP Pulse Ox 10/31/18 05:44 95 10/31/18 04:05 98.8 F 105 H 16 182/86 H 95 10/30/18 22:10 98.9 F 111 H 16 175/83 H 94 L Weight Admit Weight 65.771 kg Weight 65.771 kg I&O: 10/29/18 10/30/18 10/31/18 06:59 06:59 06:59 Intake Total 2544 1300 960 Balance 2544 1300 960 Result Diagrams: 10/30/18 04:45 10/31/18 05:23 Phys Exam - Physical Examination Constitutional: NAD HEENT: PERRLA Neck: full ROM Respiratory: clear to auscultation bilateral Cardiovascular: RRR, no significant murmur Gastrointestinal: soft, positive bowel sounds tender to palpitation Musculoskeletal: no edema, pulses present Neurological: moves all 4 limbs Lymphatic: no nodes Psychiatric: normal affect, A&O x 3 Skin: no rash Dx/Plan (1) Cervical cancer Code(s): C53.9 - MALIGNANT NEOPLASM OF CERVIX UTERI, UNSPECIFIED Status: Acute (2) Hypokalemia Code(s): E87.6 - HYPOKALEMIA Status: Acute (3) Hypomagnesemia Code(s): E83.42 - HYPOMAGNESEMIA Status: Acute (4) Intractable abdominal pain Code(s): R10.9 - UNSPECIFIED ABDOMINAL PAIN Status: Acute (5) HTN (hypertension) Code(s): I10 - ESSENTIAL (PRIMARY) HYPERTENSION Status: Acute - Plan Plan: Mrs. Bruce is 53 yo F with cervical cancer with ureteral mets who presents due to intractable pain. 1. Intractable abdominal pain -started on home regime Fentanyl patch, MS Contin 45 BID, added Morphine IV 2mg q2hr prn for breakthrough pain, and PO Morphine 10 mg for severe pain. -consult oncology today, appreciate recs. Currently will await PET restaging. -CT did not show ureteral stent displacement and stable hydronephrosis. It did show enlarged gallbladder. She denies pain w/ food and RUQ tenderness. Will continue to monitor. -Leukocytosis - patient has been afebrile overnight. Currently downtrending 12.8 >11.8, will recheck tomorrow -scheduled bowel regimen 2. Hypokalemia 2.5 in ED, Replaced with 20meq IV and 40meq po. -will continue to monitor -Started on KCl 20 mEq BID 3. Hypomagnesemia -Will recheck and replace as needed. 4. Cervical cancer, with ureteral involvement Has had 1 round of chemotherapy, not currently undergoing treatment. -Dr. Ramirez placed current ureteral stent, due to be removed 11/11 -Consulted urology, appreciate recs. They started Oxybutnin 10 mg and Pyridium 100 mg TID 5. HTN On Lisinopril 10mg po daily at home. Increased to 20 mg -BP 142/79-182/86 overnight -prn Hydralazine 6. Elevated Alk Phos Alk Phos: 550>424 -Will continue to monitor Code: Full VTE: Lovenox, refused Diet: Dispo: Stable, inpt for pain management. Will talk to Dr. Hi about PET scan. A
[2018-10-31] MEDS ORDERED: Senokot 8.6 MG TAB PO SCH (06:00)
[2018-10-31 06:05] LABS: Anion Gap 12 mmol/L (10-20); BUN (Urea Nitrogen) 7 mg/dL (9.8-20.1); Calc. Creatinine Clearance 90 mL/min (70-130); Calcium 9.4 mg/dL (7.8-10.44); Carbon Dioxide 24 mmol/L (22-29); Chloride 104 mmol/L (98-107); Estimated GFR-MDRD 81; Glucose 104 mg/dL (70-105); Potassium 3.3 mmol/L (3.5-5.1); Sodium 137 mmol/L (136-145)
[2018-10-31] MEDS: hydrALAZINE 20 MG/ML VIAL SLOW IVP PRN (07:44)
[2018-10-31] MEDS: Potassium Chloride 20 MEQ TAB PO SCH ×2 (08:47→17:58)
[2018-10-31] MEDS: Oxybutynin ER 5 MG TAB PO SCH (08:48)
[2018-10-31] MEDS: Lisinopril 20 MG TAB PO SCH (08:48)
[2018-10-31] MEDS: Lisinopril 5 MG TAB PO SCH (08:48)
[2018-10-31] MEDS: Docusate 100 MG CAP PO SCH ×2 (08:49→20:26)
[2018-10-31] MEDS: Morphine ER 15 MG TAB PO SCH ×2 (08:49→21:26)
[2018-10-31] MEDS ORDERED: Morphine IR Tab 15 MG TAB PO SCH (09:00)
[2018-10-31] MEDS: Enoxaparin Sodium 40 MG/0.4 ML SYRINGE SC SCH (09:12)
[2018-10-31] MEDS ORDERED: Morphine IR Tab 15 MG TAB PO PRN ×2 (09:21→13:32)
[2018-10-31] MEDS: Phenazopyridine HCl 97.5 MG TABLET PO SCH ×3 (09:28→17:58)
--- NOTE | 2018-10-31 10:48 | PRG ---
DATE OF SERVICE: 10/31/2018 Her pain control seems to be better than yesterday. We made some adjustments and added more morphine to her regimen. We will continue to adjust, treat, and await input from Oncology. Job ID: [id number]
[2018-10-31] MEDS: Acetaminophen 325 MG TAB PO SCH ×2 (11:27→17:58)
[2018-10-31] MEDS ORDERED: Senokot 8.6 MG TAB PO PRN (11:35)
[2018-10-31] MEDS: Morphine IR 10 MG/5 ML UDCUP PO PRN ×2 (15:18→20:22)
[2018-11-01] MEDS: Morphine 2 MG/ML SYRINGE SLOW IVP PRN ×10 (00:19→22:41)
[2018-11-01] MEDS: Acetaminophen 325 MG TAB PO SCH ×4 (00:29→17:56)
--- NOTE | 2018-11-01 06:19 | PDOC.FM ---
- Subjective Subjective: Patient doing well this morning. Questioning whether the fentanyl works at all, because she usually only feels relief with the morphine. Has been tolerating her food well. Reports of continued pain after urination. Also reporting of continued constipation today. - Objective Vital Signs & Weight: Vital Signs (12 hours) Temp Pulse Resp BP Pulse Ox 11/01/18 03:34 98.2 F 100 17 152/74 H 94 L 10/31/18 19:40 98.8 F 106 H 16 134/71 92 L Weight Admit Weight 65.771 kg Weight 65.771 kg I&O: 10/30/18 10/31/18 11/01/18 06:59 06:59 06:59 Intake Total 1300 2200 2040 Output Total 1150 Balance 1300 1050 2040 Result Diagrams: 10/30/18 04:45 11/01/18 06:46 EKG Reviewed by me: Yes (sinus tachycardia) Phys Exam - Physical Examination Constitutional: NAD HEENT: moist MMs, sclera anicteric Neck: supple, full ROM Respiratory: no wheezing, clear to auscultation bilateral Cardiovascular: no significant murmur regular rhythm, tachycardic rate Gastrointestinal: soft ttp Musculoskeletal: no edema, pulses present Neurological: normal sensation, moves all 4 limbs Lymphatic: no nodes Psychiatric: normal affect, A&O x 3 Skin: normal turgor, cap refill <2 seconds Dx/Plan (1) Intractable abdominal pain Code(s): R10.9 - UNSPECIFIED ABDOMINAL PAIN Status: Acute (2) Cervical cancer Code(s): C53.9 - MALIGNANT NEOPLASM OF CERVIX UTERI, UNSPECIFIED Status: Acute (3) Hydronephrosis Code(s): N13.30 - UNSPECIFIED HYDRONEPHROSIS Status: Acute (4) Hypokalemia Code(s): E87.6 - HYPOKALEMIA Status: Acute (5) Hypomagnesemia Code(s): E83.42 - HYPOMAGNESEMIA Status: Acute - Plan Plan: Mrs. Bruce is 53 yo F with cervical cancer with ureteral mets who presents due to intractable pain. #Intractable abdominal pain -Fentanyl patch, MS Contin 45 BID, Morphine IV 2mg q2hr prn for breakthrough pain, and PO Morphine 10 mg for severe pain. -oncology rec PET scan outpatient, signed off -CT did not show ureteral stent displacement and stable hydronephrosis. It did show enlarged gallbladder. She denies pain w/ food and RUQ tenderness. Will continue to monitor. -Leukocytosis - patient has been afebrile overnight. Downtrended 12.8>11.8 -scheduled bowel regimen, added miralax today for constipation #Hypokalemia 2.5 in ED, Replaced with 20meq IV and 40meq po. -will continue to monitor -potassium 4.7 today -Started on KCl 20 mEq BID #Hypomagnesemia -Will recheck and replace as needed. #Cervical cancer, with ureteral involvement Has had 1 round of chemotherapy, not currently undergoing treatment. -Dr. Ramirez placed current ureteral stent, due to be removed 11/11 -Consulted urology, started Oxybutnin 10 mg and Pyridium 100 mg TID, signed off with f/u outpatient -oncology signed off with f/u after PET scan outpatient -Has been seen by Dr. Wharton from the [facility], although has not made all of her appointments 04/[address] #HTN On Lisinopril 10mg po daily at home. Increased to 20 mg -BP 130s-150s/70s overnight -prn Hydralazine #Elevated Alk Phos Alk Phos: 550>424 -Will continue to monitor Code: Full VTE: Lovenox, refused Diet: HH Dispo: Stable, inpt for pain management. F/U with urology outpatient. PET scan outpatient. Addendum - Attending - Attending Attestation Date/Time: 11/01/18 1220 I personally evaluated the patient and discussed the management with Dr. Truong. I agree with the History, Examination, Assessment and Plan documented above with any addition or exceptions noted below. The patient appeared to be resting comfortably in bed when we rounded. She rates her pain as a 10/10 following voiding. She states the lowest the pain gets is a 7/10. For today, we will continue the fentanyl and ms contin with morphine for breakthrough which was started yesterday. We will see how much prn morphine is required and adjust the ms contin as needed. Also adding hyoscyamine to see if this helps with the cramping she has following voids.
[2018-11-01 07:36] LABS: Anion Gap 12 mmol/L (10-20); BUN (Urea Nitrogen) 7 mg/dL (9.8-20.1); Calc. Creatinine Clearance 86 mL/min (70-130); Calcium 9.4 mg/dL (7.8-10.44); Carbon Dioxide 26 mmol/L (22-29); Chloride 105 mmol/L (98-107); Estimated GFR-MDRD 76; Glucose 98 mg/dL (70-105); Potassium 3.6 mmol/L (3.5-5.1); Sodium 139 mmol/L (136-145)
[2018-11-01] MEDS: Polyethylene Glycol 3350 17 GM Packet PO SCH (08:54)
[2018-11-01] MEDS: Enoxaparin Sodium 40 MG/0.4 ML SYRINGE SC SCH (08:55)
[2018-11-01] MEDS: Morphine ER 15 MG TAB PO SCH ×2 (08:56→21:21)
[2018-11-01] MEDS: Oxybutynin ER 5 MG TAB PO SCH (08:58)
[2018-11-01] MEDS: Docusate 100 MG CAP PO SCH ×2 (08:58→20:28)
[2018-11-01] MEDS: Phenazopyridine HCl 97.5 MG TABLET PO SCH ×3 (08:58→17:56)
[2018-11-01] MEDS: Potassium Chloride 20 MEQ TAB PO SCH ×2 (08:58→17:56)
[2018-11-01] MEDS: Lisinopril 20 MG TAB PO SCH (08:58)
[2018-11-01] MEDS: Sodium Chloride 0.9% 1,000 ML IV SCH ×2 (08:59→17:58)
[2018-11-01] MEDS: Hyoscyamine Sulfate SL 0.125 mg Tablet PO SCH ×4 (10:40→21:37)
[2018-11-01] MEDS: fentaNYL 75 mcg/hour Patch TD SCH (13:37)
[2018-11-01] MEDS: hydrALAZINE 20 MG/ML VIAL SLOW IVP PRN (20:24)
[2018-11-01] MEDS: Senokot 8.6 MG TAB PO SCH (20:28)
[2018-11-01] MEDS ORDERED: Ibuprofen 600 MG TAB PO SCH (20:45)
[2018-11-02] MEDS: Morphine 2 MG/ML SYRINGE SLOW IVP PRN ×6 (00:43→21:16)
[2018-11-02] MEDS: Acetaminophen 325 MG TAB PO SCH ×5 (00:44→23:59)
[2018-11-02] MEDS: Hyoscyamine Sulfate SL 0.125 mg Tablet PO SCH ×6 (04:30→23:59)
--- NOTE | 2018-11-02 05:10 | PDOC.FM ---
- Subjective Subjective: Patient doing okay this morning. Reports that she had some mild improvement in her pain with urination this morning. Still asking for morphine Q2H for pain. - Objective Vital Signs & Weight: Vital Signs (12 hours) Temp Pulse Resp BP BP Pulse Ox 11/02/18 03:42 98.1 F 95 18 129/65 92 L 11/01/18 23:34 98.4 F 102 H 18 116/55 L 93 L 11/01/18 20:24 116 H 181/84 H 11/01/18 19:10 102.6 F H 116 H 18 181/84 H 92 L Weight Admit Weight 65.771 kg Weight 65.771 kg I&O: 10/31/18 11/01/18 11/02/18 06:59 06:59 06:59 Intake Total 2200 2040 3720 Output Total 1150 Balance 1050 2040 3720 Result Diagrams: 11/02/18 04:39 11/02/18 04:39 EKG Reviewed by me: Yes (sinus tachycardia overnight, 90s-110s) Phys Exam - Physical Examination Constitutional: NAD HEENT: moist MMs, sclera anicteric Neck: supple, full ROM Respiratory: no wheezing, clear to auscultation bilateral Cardiovascular: RRR, no significant murmur Gastrointestinal: soft lower abdomen ttp Musculoskeletal: no edema, pulses present Neurological: normal sensation, moves all 4 limbs Lymphatic: no nodes Psychiatric: normal affect, A&O x 3 Skin: normal turgor, cap refill <2 seconds Dx/Plan (1) Intractable abdominal pain Code(s): R10.9 - UNSPECIFIED ABDOMINAL PAIN Status: Acute (2) Cervical cancer Code(s): C53.9 - MALIGNANT NEOPLASM OF CERVIX UTERI, UNSPECIFIED Status: Acute (3) Hydronephrosis Code(s): N13.30 - UNSPECIFIED HYDRONEPHROSIS Status: Acute (4) Hypokalemia Code(s): E87.6 - HYPOKALEMIA Status: Acute (5) Hypomagnesemia Code(s): E83.42 - HYPOMAGNESEMIA Status: Acute - Plan Plan: Mrs. Bruce is 53 yo F with cervical cancer with ureteral mets who presents due to intractable pain. #Intractable abdominal pain -Fentanyl patch, MS Contin 45 BID, Morphine IV 2mg q2hr prn for breakthrough pain, and PO Morphine 10 mg for severe pain. -oncology rec PET scan outpatient, signed off -CT did not show ureteral stent displacement and stable hydronephrosis. It did show enlarged gallbladder. She denies pain w/ food and RUQ tenderness. Will continue to monitor. -Leukocytosis - Downtrended 12.8>11.8>10.5 -scheduled bowel regimen, added miralax for constipation -still requiring morphine IV 2mg almost every 2 hours on current regimen, will consider altering regimen today -added hyocyamine for abdominal pain 11/01 #Fever -fever of 102.6F overnight -CBC, blood culture, UA with reflex culture, CXR, will follow -WBC 10.5 #Anemia -H/H 7.7/24.7 -iron studies ordered, will f/u #Hypokalemia 2.5 in ED, Replaced with 20meq IV and 40meq po. -will continue to monitor -potassium 4.7 11/01 -Started on KCl 20 mEq BID #Hypomagnesemia -Will recheck and replace as needed. #Cervical cancer, with ureteral involvement Has had 1 round of chemotherapy, not currently undergoing treatment. -Dr. Ramirez placed current ureteral stent, due to be removed 11/11 -Consulted urology, started Oxybutnin 10 mg and Pyridium 100 mg TID, signed off with f/u outpatient -oncology signed off with f/u after PET scan outpatient -Has been seen by Dr. Wharton from the [facility], although has not made all of her appointments 04/[address] #HTN On Lisinopril 10mg po daily at home. Increased to 20 mg -BP 110s-180s/50-90s overnight -prn Hydralazine, received one dose last night #Elevated Alk Phos Alk Phos: 550>424 -Will continue to monitor Code: Full VTE: Lovenox, refused Diet: HH Dispo: Stable, inpt for pain management and fever workup. F/U with urology outpatient. PET scan outpatient. Addendum - Attending - Attending Attestation Date/Time: 11/02/18 2411 I personally evaluated the patient and discussed the management with Dr. Truong. I agree with the History, Examination, Assessment and Plan documented above with any addition or exceptions noted below. Regarding the patient's pain, she has received 20 mg of morphine in the past 24 hours for breakthrough pain. We will increase her ms contin to 60 mg bid to better control. D/c the po morphine that is prn as she hasn't needed it in 2 days. The hope is that we can space out her prn IV morphine once we transition to the 60 mg of ms contin. There may have been a little improvement in pain after voiding with hyoscyamine and we will continue this. Pt had a fever overnight and we obtaine blood and urine cultures as well as a chest xr. Her o2 sats have been borderline low and she has been refusing lovenox and is at high risk for clots due to her cancer. Will get cta to rule out pe. We had a long discussion about the plan with the patient and her . The patient voiced understanding but the patient's was argumentative. Both days I have rounded we have been told different medications controlled the pain, yesterday it was norco and morphine, today it was norco and ibuprofen. Dr. Truong received different information from pain management. There was also mention that she has a history of gastric ulcer. With her anemia and concern for PE, I am not comfortable adding an nsaid at this time. I explained to the patient's that an NSAID should not be used in someone with hx of gastric ulcer. He began to yell at our team and the patient's nurse was in the room to witness this. We re-explained the plan to adjust ms contin and to check for infection and the patient said thank you.
[2018-11-02 05:25] LABS: Anion Gap 12 mmol/L (10-20); BUN (Urea Nitrogen) 8 mg/dL (9.8-20.1); Calc. Creatinine Clearance 87 mL/min (70-130); Calcium 8.9 mg/dL (7.8-10.44); Carbon Dioxide 24 mmol/L (22-29); Chloride 106 mmol/L (98-107); Estimated GFR-MDRD 77; Glucose 98 mg/dL (70-105); Potassium 3.7 mmol/L (3.5-5.1); Sodium 138 mmol/L (136-145)
[2018-11-02] MEDS: Sodium Chloride 0.9% 1,000 ML IV SCH ×2 (05:25→17:15)
[2018-11-02 07:26] LABS: #Eosinphils 0.1 thou/uL (0.0-0.7); #Lymphocytes 0.5 thou/uL (1.20-3.40); #Monocytes 0.6 thou/uL (0.11-0.59); #Neutrophils 9.2 thou/uL (1.40-6.50); %Basophils 0.3 % (0.0-1.0); %Eosinophils 1.1 % (0.0-10.0); %Lymphocytes 4.9 % (21.0-51.0); %Monocytes 5.4 % (0.0-10.0); %Neutrophils 88.3 % (42.0-75.0); Hemoglobin 7.7 g/dL (12.0-16.0); Mean Corpuscular HGB CONC 31.3 g/dL (32.0-36.0); Mean Corpuscular Hemoglobin 29.4 pg (27.0-31.0); Mean Platelet Volume 8.1 fL (7.4-10.4); Platelet Count 332 thou/uL (130-400); RBC Distribution Width 16.1 % (11.5-14.5); Red Blood Cell (RBC) Count 2.63 mill/uL (4.20-5.40); White Blood Cell (WBC) Count 10.5 thou/uL (4.8-10.8)
[2018-11-02] MEDS: Lisinopril 20 MG TAB PO SCH (08:55)
[2018-11-02] MEDS: Phenazopyridine HCl 97.5 MG TABLET PO SCH ×3 (08:55→17:15)
[2018-11-02] MEDS: Potassium Chloride 20 MEQ TAB PO SCH ×2 (08:55→17:15)
[2018-11-02] MEDS: Oxybutynin ER 5 MG TAB PO SCH (08:56)
[2018-11-02] MEDS: Morphine ER 15 MG TAB PO SCH ×2 (08:56→20:28)
[2018-11-02] MEDS: Docusate 100 MG CAP PO SCH ×2 (08:57→20:31)
[2018-11-02] MEDS: Enoxaparin Sodium 40 MG/0.4 ML SYRINGE SC SCH (08:57)
[2018-11-02] MEDS: Polyethylene Glycol 3350 17 GM Packet PO SCH (08:58)
[2018-11-02] MEDS ORDERED: Hyoscyamine Sulfate SL 0.125 mg Tablet PO SCH (09:00)
[2018-11-02] MEDS ORDERED: Morphine ER 15 MG TAB PO SCH (09:20)
[2018-11-02 10:04] LABS: Iron 19 ug/dL (50-170); Iron Binding Capacity, Total 145 mcg/dL (265-497); Transferrin, Serum 116 mg/dL (180-382)
--- NOTE | 2018-11-02 10:33 | RAD ---
FRONTAL VIEW CHEST: COMPARISON: 03/30/2015. INDICATION: Afebrile. FINDINGS: The right hemidiaphragm is elevated, stable. No lobar consolidation, effusion, or discrete pneumotho rax. Cardiac silhouette is accentuated by portable technique. IMPRESSION: No focal consolidation. POS: TPC
[2018-11-02 10:36] LABS: Clarity Turbid (Clear); Squamous Epithelial 0-3 HPF (0-3)
[2018-11-02] MEDS ORDERED: Milk Of Magnesia 30 ML UDCUP PO SCH (10:45)
--- NOTE | 2018-11-02 10:48 | PDOC.EVN ---
Event Note - Event Note Event Note: Patient has been refusing her daily lovenox. Was febrile overnight at 102.6F. Has had tachycardia and decreased oxygen saturation. Patient had clear breath sounds throughout upon exam. Ordered CXR, blood cultures, urine cultures, and CTA to assess for PE. Will follow up and treat accordingly. Has also been struggling with constipation, requesting bowel regimen. However has been rejecting portions of her bowel regimen when offered. During the encounter this morning was shouting at staff throughout the conversation, acting very aggressive. At one time almost got up out of his chair. Multiple staff have mentioned that the is unpleasant to talk to throughout patient's hospital stay. He is verbally aggressive and tries to dictate patient's medication regimen.
[2018-11-02 10:52] LABS: Bilirubin Unable to Interpret (Negative); Blood, Urine Unable to Interpret (Negative); Glucose, Urine (Dipstick) Unable to Interpret mg/dL (Negative); Leukocyte Unable to Interpret Leu/uL (Negative); Nitrite Unable to Interpret (Negative); Protein, Urine (Dipstick) Unable to Interpret mg/dL (Neg-Trace); Urobilinogen UNABLE TO INTERPRET mg/dL (Less than 2)
[2018-11-02 10:53] LABS: Bacteria/HPF 2+ HPF (None Seen)
[2018-11-02 10:55] LABS: Urine Culture Reflex Yes Yes
--- NOTE | 2018-11-02 11:07 | CT ---
CT angiogram chest: 11/02/2018 HISTORY: Pain, history of congestive heart failure, assess for pulmonary arterial embolism COMPARISON: CT of abdomen and pelvis 10/28/2018 TECHNIQUE: Axial CT imaging at 2.5 mm intervals from the thoracic inlet through the upper abdomen wit h IV contrast using a CT angiogram protocol. Coronal and sagittal 3-D reformatted imaging obtained. FINDINGS: No axillary, mediastinal, or hilar lymphadenopathy is noted. Imaged upper abdomen demonstrates marked distention of the gallbladder, a stable finding. There is a partially visualized stent within the left kidney. The hepatic parenchyma is hypodense suggesting steatosis. There is no significant pleural, pericardial, or mediastinal fluid seen. The inferior most aspect of bilateral lower lobes is not imaged. No pneumothorax is appreciated. Imaged portions of the aorta appear grossly unremarkable. There is adequate opacification of the pulmonary arterial vasculature with no evidence for pulmonary arterial embolism seen. No acute pulmonary parenchymal abnormality noted on either side. The imaged osseous structures demons trate no acute findings. No discrete endobronchial lesion is evident. IMPRESSION: No evidence for pulmonary arterial embolism. Marked distention of the gallbladder. Please correlate clinically.
[2018-11-02] MEDS ORDERED: Iopamidol 370 76% 100 ML VIAL ONE (15:25)
[2018-11-02] MEDS: cefTRIAXone\\ROCEPHIN 1 GM in Sodium Chloride 0.9% 100 ML IVPB SCH (15:42)
[2018-11-02] MEDS: Senokot 8.6 MG TAB PO SCH (20:31)
[2018-11-02] MEDS: hydrALAZINE 20 MG/ML VIAL SLOW IVP PRN (23:56)
[2018-11-03] MEDS: Sodium Chloride 0.9% 1,000 ML IV SCH (00:01)
[2018-11-03] MEDS: Morphine 2 MG/ML SYRINGE SLOW IVP PRN ×3 (00:08→16:10)
[2018-11-03] MEDS: Hyoscyamine Sulfate SL 0.125 mg Tablet PO SCH ×5 (05:25→20:04)
[2018-11-03] MEDS: Acetaminophen 325 MG TAB PO SCH ×4 (05:25→23:59)
[2018-11-03 05:51] LABS: #Eosinphils 0.1 thou/uL (0.0-0.7); #Lymphocytes 0.6 thou/uL (1.20-3.40); #Monocytes 0.7 thou/uL (0.11-0.59); %Basophils 0.1 % (0.0-1.0); %Eosinophils 1.2 % (0.0-10.0); %Lymphocytes 4.6 % (21.0-51.0); %Monocytes 5.5 % (0.0-10.0); %Neutrophils 88.6 % (42.0-75.0); Hemoglobin 8.2 g/dL (12.0-16.0); Mean Corpuscular HGB CONC 30.1 g/dL (32.0-36.0); Mean Platelet Volume 7.6 fL (7.4-10.4); Platelet Count 365 thou/uL (130-400); Red Blood Cell (RBC) Count 2.92 mill/uL (4.20-5.40); White Blood Cell (WBC) Count 12.4 thou/uL (4.8-10.8)
--- NOTE | 2018-11-03 05:51 | PDOC.FM ---
- Subjective Subjective: Patient doing well this morning. Reports that she feels like her pain has decreased somewhat. Pain scores 5-10 overnight. Requiring the breakthrough morphine less frequently. Has not had a BM yet but has been passing gas. Agreeable to current plan of care. - Objective Vital Signs & Weight: Vital Signs (12 hours) Temp Pulse Resp BP BP Pulse Ox 11/03/18 02:43 99.0 F 109 H 20 157/88 H 92 L 11/02/18 23:56 114 H 180/92 H 11/02/18 23:34 99.7 F H 180/92 H 11/02/18 20:00 100.1 F H 111 H 20 178/85 H 92 L Weight Admit Weight 65.771 kg Weight 69.082 kg I&O: 11/01/18 11/02/18 11/03/18 06:59 06:59 06:59 Intake Total 2040 3720 3574 Output Total 1760 Balance 2040 3720 1814 Result Diagrams: 11/03/18 05:40 11/03/18 05:40 EKG Reviewed by me: Yes (sinus tachycardia 100s-110s) Phys Exam - Physical Examination Constitutional: NAD HEENT: moist MMs, sclera anicteric Neck: supple, full ROM Respiratory: no wheezing, clear to auscultation bilateral Cardiovascular: no significant murmur sinus rhythm, tachycardia Gastrointestinal: soft, positive bowel sounds ttp llq Musculoskeletal: no edema, pulses present Neurological: normal sensation, moves all 4 limbs Lymphatic: no nodes Psychiatric: normal affect, A&O x 3 Skin: normal turgor, cap refill <2 seconds Dx/Plan (1) Intractable abdominal pain Code(s): R10.9 - UNSPECIFIED ABDOMINAL PAIN Status: Acute (2) Cervical cancer Code(s): C53.9 - MALIGNANT NEOPLASM OF CERVIX UTERI, UNSPECIFIED Status: Acute (3) Hydronephrosis Code(s): N13.30 - UNSPECIFIED HYDRONEPHROSIS Status: Acute (4) Hypokalemia Code(s): E87.6 - HYPOKALEMIA Status: Acute (5) Hypomagnesemia Code(s): E83.42 - HYPOMAGNESEMIA Status: Acute - Plan Plan: Mrs. Bruce is 53 yo F with cervical cancer with ureteral mets who presents due to intractable pain. #Intractable abdominal pain -Fentanyl patch, MS Contin 60 BID, Morphine IV 2mg q2hr prn for breakthrough pain -switched from MS Contin 45 BID to 60 BID 11/02. Switched morphine from 2mg q2hr prn to q4h prn evening 11/02 -pain scores mostly 5 after breakthrough morphine and 10 toward the end of the q4h window overnight -oncology rec PET scan outpatient, signed off -CT did not show ureteral stent displacement and stable hydronephrosis. It did show enlarged gallbladder. She denies pain w/ food and RUQ tenderness. Will continue to monitor. -Leukocytosis - 12.8>11.8>10.5>12.4 -scheduled bowel regimen, added miralax for constipation -went 5 hours without requiring prn morphine this morning. Will see how current regimen works for her today and adjust accordingly -added hyocyamine for abdominal pain 11/01 #Fever - fever of 102.6F overnight 11/01, tmax of 100.1 evening of 11/02 - blood culture pending - UA positive for 2+ bacteria, 1g ceftriaxone q24hr started 11/02, urine culture pending, will follow - CXR negative for acute process - CTA negative for PE - WBC 10.5 #Anemia- likely 2/2 chronic disease -H/H 7.7/24.7>8.2/27.2 -iron studies show iron 19, TIBC 145, Transferrin 116 all low, ferritin 214.66 wnl. Likely anemia of chronic disease - 2/2 constipation will hold off on iron for now #Hypokalemia 2.5 in ED, Replaced with 20meq IV and 40meq po. -will continue to monitor -potassium 3.7 11/01 -potassium 3.6 -Started on KCl 20 mEq BID #Hypomagnesemia -Will recheck and replace as needed. #Cervical cancer, with ureteral involvement Has had 1 round of chemotherapy, not currently undergoing treatment. -Dr. Ramirez placed current ureteral stent, due to be removed 11/11 -Consulted urology, started Oxybutnin 10 mg and Pyridium 100 mg TID, signed off with f/u outpatient -oncology signed off with f/u after PET scan outpatient -Has been seen by Dr. Wharton from the [facility], although has not made all of her appointments 04/[address] #HTN On Lisinopril 10mg po daily at home. Increased to 20 mg. Consider increasing to 40mg today -BP 150s-180s/80-90s overnight -fluids were stopped overnight, will continue to monitor BP without additional fluids -prn Hydralazine, received one dose last night #Elevated Alk Phos Alk Phos: 550>424 -Will continue to monitor Code: Full VTE: Lovenox, refused Diet: HH Dispo: Stable, inpt for pain management and fever workup. F/U with urology outpatient. PET scan outpatient. Addendum - Attending - Attending Attestation Date/Time: 11/03/18 0811 I personally evaluated the patient and discussed the management with Dr. Truong. I agree with the History, Examination, Assessment and Plan documented above with any addition or exceptions noted below. The patient notes some improvement in pain. Will continue current ms contin dose of 60 mg bid. Spacing out prn morphine. She remains on rocephin until urine cultures finalize. Will try medication for opiod induced constipation. Stopping oxybutynin as pt doesn't think it's helping.
[2018-11-03 06:15] LABS: Anion Gap 13 mmol/L (10-20); BUN (Urea Nitrogen) 7 mg/dL (9.8-20.1); Calc. Creatinine Clearance 92 mL/min (70-130); Calcium 8.8 mg/dL (7.8-10.44); Carbon Dioxide 24 mmol/L (22-29); Chloride 103 mmol/L (98-107); Estimated GFR-MDRD 78; Glucose 107 mg/dL (70-105); Potassium 3.6 mmol/L (3.5-5.1); Sodium 136 mmol/L (136-145)
[2018-11-03] MEDS ORDERED: Milk Of Magnesia 30 ML UDCUP PO SCH (09:00)
[2018-11-03] MEDS: Oxybutynin ER 5 MG TAB PO SCH (09:14)
[2018-11-03] MEDS: Lisinopril 20 MG TAB PO SCH (09:14)
[2018-11-03] MEDS: Polyethylene Glycol 3350 17 GM Packet PO SCH (09:14)
[2018-11-03] MEDS: Morphine ER 15 MG TAB PO SCH ×2 (09:15→20:05)
[2018-11-03] MEDS: Potassium Chloride 20 MEQ TAB PO SCH ×2 (09:16→17:56)
[2018-11-03] MEDS: Phenazopyridine HCl 97.5 MG TABLET PO SCH ×3 (09:16→17:54)
[2018-11-03] MEDS: Docusate 100 MG CAP PO SCH ×2 (09:16→20:06)
[2018-11-03] MEDS: Enoxaparin Sodium 40 MG/0.4 ML SYRINGE SC SCH (09:17)
[2018-11-03] MEDS: cefTRIAXone\\ROCEPHIN 1 GM in Sodium Chloride 0.9% 100 ML IVPB SCH (15:07)
[2018-11-03] MEDS: Senokot 8.6 MG TAB PO SCH (20:06)
[2018-11-04] MEDS: Hyoscyamine Sulfate SL 0.125 mg Tablet PO SCH ×4 (00:02→14:21)
[2018-11-04 05:05] LABS: #Eosinphils 0.1 thou/uL (0.0-0.7); #Lymphocytes 0.6 thou/uL (1.20-3.40); #Monocytes 0.6 thou/uL (0.11-0.59); #Neutrophils 9.9 thou/uL (1.40-6.50); %Basophils 0.1 % (0.0-1.0); %Eosinophils 1.1 % (0.0-10.0); %Lymphocytes 5.5 % (21.0-51.0); %Monocytes 5.7 % (0.0-10.0); %Neutrophils 87.6 % (42.0-75.0); Hemoglobin 7.4 g/dL (12.0-16.0); Mean Corpuscular Hemoglobin 28.9 pg (27.0-31.0); Mean Corpuscular Volume 93.1 fL (78.0-98.0); Mean Platelet Volume 7.6 fL (7.4-10.4); Platelet Count 367 thou/uL (130-400); Red Blood Cell (RBC) Count 2.57 mill/uL (4.20-5.40); White Blood Cell (WBC) Count 11.3 thou/uL (4.8-10.8)
--- NOTE | 2018-11-04 05:16 | PDOC.FM ---
- Subjective Subjective: Patient doing well this morning. Had a pain score of 4 early this morning. States that she has noticed no difference after discontinuation of the oxybutinin yesterday. Patient is unsure if the fentanyl patch is helping her pain, though she believes the MS Contin and breakthrough morphine do. Has still not had a BM. - Objective Vital Signs & Weight: Vital Signs (12 hours) Temp Pulse Resp BP Pulse Ox 11/04/18 00:00 112 H 20 165/104 H 11/03/18 20:00 99.2 F 112 H 20 176/93 H 92 L Weight Admit Weight 65.771 kg Weight 69.082 kg I&O: 11/02/18 11/03/18 11/04/18 06:59 06:59 06:59 Intake Total 3720 3574 1420 Output Total 1760 1300 Balance 3720 1814 120 Result Diagrams: 11/04/18 04:43 11/04/18 04:43 EKG Reviewed by me: Yes (sinus tachycardia, occasional PVC) Phys Exam - Physical Examination Constitutional: NAD HEENT: moist MMs, sclera anicteric Neck: supple, full ROM Respiratory: no wheezing, clear to auscultation bilateral Cardiovascular: no significant murmur sinus tachycardia Gastrointestinal: soft mildly ttp lower abdomen Musculoskeletal: no edema, pulses present Neurological: normal sensation, moves all 4 limbs Lymphatic: no nodes Psychiatric: normal affect, A&O x 3 Skin: normal turgor, cap refill <2 seconds Dx/Plan (1) Intractable abdominal pain Code(s): R10.9 - UNSPECIFIED ABDOMINAL PAIN Status: Acute (2) Cervical cancer Code(s): C53.9 - MALIGNANT NEOPLASM OF CERVIX UTERI, UNSPECIFIED Status: Acute (3) Hydronephrosis Code(s): N13.30 - UNSPECIFIED HYDRONEPHROSIS Status: Acute (4) Hypokalemia Code(s): E87.6 - HYPOKALEMIA Status: Acute (5) Hypomagnesemia Code(s): E83.42 - HYPOMAGNESEMIA Status: Acute - Plan Plan: Mrs. Bruce is 53 yo F with cervical cancer with ureteral mets who presents due to intractable pain. #Intractable abdominal pain -Fentanyl patch, MS Contin 60 BID, Morphine IV 2mg q4hr prn for breakthrough pain -switched from MS Contin 45 BID to 60 BID 11/02. Switched morphine from 2mg q2hr prn to q4h prn evening 11/02 -pain scores 4-8 overnight -oncology rec PET scan outpatient, signed off -CT did not show ureteral stent displacement and stable hydronephrosis. It did show enlarged gallbladder. She denies pain w/ food and RUQ tenderness. Will continue to monitor. -Leukocytosis - 12.8>11.8>10.5>12.4>11.3 -scheduled bowel regimen, added miralax and movantik for constipation -only required 2 doses of breakthrough morphine 11/03 in addition to her scheduled ms contin and fentanyl; had a pain score of 4 this morning -added hyocyamine for abdominal pain 11/01 -discontinued oxybutinin 11/03 as patient did not feel like it was helping and she didn't want to take so many medications. Reports she noticed no difference with that medication discontinued, so will leave off MAR #Fever-resolved - fever of 102.6F overnight 11/01, tmax of 99.2 evening of 11/03 - blood culture ngtd - UA positive for 2+ bacteria, 1g ceftriaxone q24hr started 11/02, today is day 3 - urine culture ngtd, will follow - CXR negative for acute process - CTA negative for PE #Anemia- likely 2/2 chronic disease -H/H 7.7/24.7>8.2/27.2>7.4/23.9 -iron studies show iron 19, TIBC 145, Transferrin 116 all low, ferritin 214.66 wnl. Likely anemia of chronic disease - 2/2 constipation will hold off on iron for now #Hypokalemia 2.5 in ED, Replaced with 20meq IV and 40meq po. -will continue to monitor -potassium 3.7 11/01 -potassium 3.6 11/03 -potassium 3.4 11/04 -Will switch to KCl 20 mEq QD #Hypomagnesemia -Will recheck and replace as needed. #Cervical cancer, with ureteral involvement Has had 1 round of chemotherapy, not currently undergoing treatment. -Dr. Ramirez placed current ureteral stent, due to be removed 11/11 -Consulted urology, started Oxybutnin 10 mg and Pyridium 100 mg TID, signed off with f/u outpatient -oncology signed off with f/u after PET scan outpatient -Has been seen by Dr. Wharton from the [facility], although has not made all of her appointments 2/[address] -patient reported of vaginal discharge, vp3 negative #HTN On Lisinopril 10mg po daily at home. Increased to 20 mg. Consider increasing to 40mg today -BP 150s-170s/70-90s overnight -prn Hydralazine, none given overnight #Elevated Alk Phos Alk Phos: 550>424 -Will continue to monitor #Constipation -patient has not had a bm since being in the hospital, but she says she can go a week at home without having a bm -have tried sennokot, docusate, miralax, and added movantik 11/04, still no bm. She is reportedly still passing gas. Will continue bowel regimen. Code: Full VTE: Lovenox, refused Diet: HH Dispo: Stable, inpt for pain management and fever workup. Possible d/c today with f/u with pain management. F/U with urology outpatient. PET scan outpatient. Addendum - Attending - Attending Attestation Date/Time: 11/04/18 1407 I personally evaluated the patient and discussed the management with Dr. Truong. I agree with the History, Examination, Assessment and Plan documented above with any addition or exceptions noted below. The patient's pain is better with current pain regimen. Will d/c home with ms contin 60 mg bid and fentanyl 75 mcg patch. Movantik for constipation and hyoscyamine for spasms. Pt is in agreement. Needs to f/u with pain mgmt outpt.
[2018-11-04 05:28] LABS: Anion Gap 16 mmol/L (10-20); BUN (Urea Nitrogen) 8 mg/dL (9.8-20.1); Calc. Creatinine Clearance 91 mL/min (70-130); Calcium 8.9 mg/dL (7.8-10.44); Carbon Dioxide 25 mmol/L (22-29); Chloride 100 mmol/L (98-107); Estimated GFR-MDRD 77; Glucose 101 mg/dL (70-105); Potassium 3.4 mmol/L (3.5-5.1); Sodium 138 mmol/L (136-145)
[2018-11-04] MEDS: Acetaminophen 325 MG TAB PO SCH ×2 (05:31→11:34)
[2018-11-04] MEDS: Lisinopril 20 MG TAB PO SCH (08:10)
[2018-11-04] MEDS: Docusate 100 MG CAP PO SCH (08:10)
[2018-11-04] MEDS: Enoxaparin Sodium 40 MG/0.4 ML SYRINGE SC SCH (08:10)
[2018-11-04] MEDS: Phenazopyridine HCl 97.5 MG TABLET PO SCH ×2 (08:10→14:21)
[2018-11-04] MEDS: Potassium Chloride 20 MEQ TAB PO SCH (08:10)
[2018-11-04] MEDS: Morphine ER 15 MG TAB PO SCH (08:11)
[2018-11-04] MEDS: Polyethylene Glycol 3350 17 GM Packet PO SCH (08:11)
[2018-11-04] MEDS ORDERED: Potassium Chloride 20 MEQ TAB PO SCH (09:00)
[2018-11-04 11:34] VITALS: BP 165/99; TEMP 99
[2018-11-04 12:22] VITALS: BMI 27.4
[2018-11-04] MEDS: fentaNYL 75 mcg/hour Patch TD SCH (12:35)
--- NOTE | 2018-11-05 11:29 | DIS ---
DATE OF ADMISSION: 10/28/2018 DATE OF DISCHARGE: 11/04/2018 ADMITTING RESIDENT: Dr. Lavern Foster. ADMITTING ATTENDING: Dr. Phoenix Kyle. DISCHARGE RESIDENT: Dr. Libia Truong. DISCHARGE ATTENDING: Dr. Annette Rojas. CONSULT: Oncology, Dr. Hi, Urology-Dr. Ramirez, Palliative Care, Spiritual Care. PROCEDURES: None. IMAGING: CT abdomen/pelvis: Re-demonstration of dilation of the left urinary collecting system, with indwelling stent traversing, irregular soft tissue mass in the pelvis. Mild degree of left hydroureteronephrosis, stable appearing. Prominent distention of the gallbladder. Correlate clinically. Chest x-ray: No focal consolidation. Chest-thorax CTA: No evidence for pulmonary arterial embolism. Marked distention of the gallbladder. Please correlate clinically. PRIMARY DIAGNOSES: Intractable abdominal pain, cervical cancer with ureteral involvement, fever likely due to urinary tract infection, anemia of chronic disease, hypokalemia. SECONDARY DIAGNOSES: Hypertension, elevated alkaline phosphatase, constipation. DISCHARGE MEDICATIONS: 1. Hyoscyamine sulfate 0.125 mg p.o. q.4 hours x 180 tablets 2. 20 mg lisinopril p.o. daily. 3. 60 mg MS Contin p.o. q.12 hours x 20 tablets 4. 25 mg Movantik p.o. daily before meals. 5. 20 mEq of potassium chloride p.o. daily. 6. 75 mcg fentanyl patch q.3 days x 3 patches Discontinued medications: 1. Two tabs hydrocodone 10/325 p.o. q.4 hours. 2. 5 mg lisinopril p.o. daily. 3. 25 mcg fentanyl q.3 days. 4. Ceftriaxone. 5. 650 mg acetaminophen p.o. q.4 hours. 6. Lovenox. 7. Hydralazine. 8. Beng[place]. 9. Zofran. 10. MiraLAX. 11. Senokot. 12. Docusate. HISTORY OF PRESENT ILLNESS/HOSPITAL COURSE: Patient has a known history of metastatic cervical cancer with ureteral involvement. She presented to the ED for increasing abdominal pain. Per patient, she had been treated by Dr. Whipple, and was on a pain regimen including morphine and [place], before being seen by Romy Richter , Pain Management, and had had her pain medication regimen changed to fentanyl and [place]. She had been prescribed 25 mcg of fentanyl q.3 days and was seen at the ED wearing three patches. She is reportedly using 10/325 [place] q.4 hours and she stated that the combination did not help with her pain. She also complained of foul chronic vaginal discharge that has existed since the cervical cancer began. CT of the abdomen and pelvis was done on admission. The patient did not complain of right upper quadrant pain or pain with eating and thus no further investigation was done for the distended gallbladder. She was started on her home regimen of 25 mcg of fentanyl, [place] 10/325 q.4 hours, and 2 mg of morphine q.2 hours for breakthrough pain. This regimen was continually adjusted throughout her hospitalization, eventually transitioning from [place] to MS Contin. She was found to have pain control with the regimen of a 75 mcg fentanyl patch q.3 days, 60 mg MS Contin b.i.d., and hyoscyamine q.4 hours. She was seen by her urologist, Dr. Ramirez, during her hospitalization, and he recommended keeping her appointment for 11/11/2018 to replace her current ureteral stent instead of doing it in hospital due to her current level of pain. He also started her on oxybutynin and phenazopyridine. Towards the end of the patient's hospitalization, patient reported that she thought the hyoscyamine was doing more for pain her than the other two medications. They were not prescribed at discharge. Oncology was also consulted during this hospitalization. However, as the patient has not been seen by them outpatient, they recommended that she follow the recommendations of Pain Management and arrange appointment to see as an outpatient after she has a staging PET scan. They had recommended trying to increase her fentanyl from 25 to 75 mcg at the beginning of the hospitalization before signing off. Palliative Care was also consulted. They discussed current goals of going home and continue treatment and care with the hospice at this time. At one point during her hospitalization, she was febrile with a temp of 102.6F. Blood cultures, UA, and urine culture, and a chest x-ray were done. Blood cultures were negative at 48 hours. She continuosly rejected her Lovenox during hospitalization, so a CTA was done that also returned negative. UA was positive for bacteria and she was treated with ceftriaxone, though urine culture returned negative and she was not discharged with ceftriaxone. A VP3 was also done to evaluate her vaginal discharge, and this was negative. She also dealt with hypokalemia throughout her hospital stay and was discharged with potassium. Patient also struggled with constipation during hospitalization. Senokot, docusate, MiraLAX, and Movantik were ordered. However, though patient requested advancements to her bowel regimen, she would often reject portions of the regimen. She reported continued fluctuance throughout the hospitalization. Bowel obstruction was not suspected. It should be noted that patient has been mentioned to be noncompliant by multiple medical providers, including verbally from Romy Richter from Pain Management, and per report from nursing, who spoke with Dr. Goodwin's office in the [facility]. It was reported by Romy Richter that she had been nonadherent to her pain management medication regimen, often using more pain medicine than prescribed. She also has missed a staging PET appointment for Dr. Hi's office and a stent procedure with Dr. Ramirez. Due to her nonadherence, we have only prescribed her with enough pain medication to make it to her next appointment with Pain Management, which was reportedly within the next week. It should also be noted that throughout the hospital stay, the patient's was reportedly often verbally aggressive with staff. Multiple verbal reports were received from nursing staff and case management about his poor attitude and aggressive behavior, and our medical team personally witnessed the behavior. At times, the would shout and would try to get out of his chair towards staff. He was often verbalizing demands that his receive higher doses of medications or a higher quantity of tablets prescribed. DISPOSITION: Stable. DISCHARGE INSTRUCTIONS: 1. Location: Home. 2. Diet: Heart healthy. 3. Activity: As tolerated. 4. Followup: With Pain Management within one week, with PCP within one week to monitor for electrolytes as patient was prescribed potassium, with Urology for ureter stent procedure, November 11, and with a PET scan outpatient and subsequently with Oncology. The patient was counseled on the consequences of taking large doses of narcotics , which include respiratory depression and . She was advised to discontinue any of the medication she may still have from Pain Management at home while taking the narcotics that are prescribed upon discharge from the hospital, and to use caution with her current prescriptions to watch for signs of respiratory depression. Job ID: [id number] [facility]
--- NOTE | 2018-11-07 01:02 | EKG ---
Test Reason : Blood Pressure : / mmHG Vent. Rate : 093 BPM Atrial Rate : 093 BPM P-R Int : 146 ms QRS Dur : 088 ms QT Int : 376 ms P-R-T Axes : 050 007 006 degrees QTc Int : 467 ms Normal sinus rhythm Possible Left atrial enlargement Left ventricular hypertrophy with repolarization abnormality Abnormal ECG Confirmed by MARIELLA ARREGUIN ([id number]), manager editorial NESHA HANNAH ([id number]) on 11/07/2018 1:01:52 AM Referred By: Confirmed By:MARIELLA ARREGUIN
== END 2018-11-04 14:19 | disposition home or self-care (01) | DRG 392 ==
LOC: ERS 14:10 → 2SW 16:40 → OBSVTOIN 16:40 → 2SW 18:59 → 2NO 10-29 16:50
PROVIDERS: ADMIT Family Medicine; ATTEND Family Medicine
DX: R10.9 Unspecified abdominal pain (principal); N13.30 Unspecified hydronephrosis; C79.19 Secondary malignant neoplasm of other urinary organs; N39.0 Urinary tract infection, site not specified; I10 Essential (primary) hypertension; Z51.5 Encounter for palliative care; C53.9 Malignant neoplasm of cervix uteri, unspecified; E87.6 Hypokalemia; E83.42 Hypomagnesemia; R74.8 Abnormal levels of other serum enzymes; D64.9 Anemia, unspecified; K59.00 Constipation, unspecified; D63.8 Anemia in other chronic diseases classified elsewhere; R25.2 Cramp and spasm; N89.8 Other specified noninflammatory disorders of vagina; Z86.73 Personal history of transient ischemic attack (TIA), and cerebral infarction without residual deficits; Z98.51 Tubal ligation status; Z90.89 Acquired absence of other organs; Z92.21 Personal history of antineoplastic chemotherapy; Z92.3 Personal history of irradiation; Z91.14 Patient's other noncompliance with medication regimen
CPT/HCPCS: 36415; 36416; 71045; 71275; 74177; 80048; 80053; 81001; 81003; 81015; 81025; 82728; 83540; 83550; 83690; 83735; 84100; 84145; 84466; 85025; 87040; 87086; 87480; 87510; 87660; 93005; 96365; 96367; 96375; J0360; J0696; J1650; J2270; J2405; J3475; J3480; J3490; J7050; Q9966; Q9967

== ENCOUNTER 2018-11-09 10:30 | Outpatient (CLI) | payer OTHER ==
--- NOTE | 2018-11-09 12:20 | PET ---
PET SCAN WITH CT ATTENUATION CORRECTION: HISTORY: Malignant neoplasm of overlying sites of the cervix. 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 COMPARISON: None. TECHNIQUE: PET scanning with CT attenuation correction is performed from the base of the brain to the proximal t highs following the intravenous administration of 11.0 mCi F18-FDG. FINDINGS: HEAD/NECK: Uptake in the paraspinal muscles likely due to patient motion. CHEST: No abnormal FDG localization in the mediastinum or lung parenchyma. SOLID ORGANS: No abnormal FDG localization in the liver, spleen, pancreas, or adrenal glands. There is a stent in the left intra and extrarenal collecting system, best demonstrated on the CT used for attenuation correction. There is marked dilatation of the right intra and extrarenal collecting system with significant retention of radiotracer. Findings are presumed to be due to a right-sided ob structive uropathy. Evaluation is limited on the CT used for attenuation correction. PELVIS: Abnormal FDG localization at the level of the cervix, compatible with patient's history. There is als o abnormal FDG localization involving the uterus. Maximum SUV at the uterus is 4.6. Maximum SUV at th e level of the cervix is 3.3. No obvious hypermetabolic lymph nodes. Radiotracer retention in the urinary bladder does limit evaluation. OSSEOUS STRUCTURES: No abnormal FDG localization. IMPRESSION: 1. Increased FDG avidity involving the uterus and cervix, compatible with patient's history of cervi jolly cancer. No obvious hypermetabolic lymph nodes in the pelvis. 2. Dilatation of the right intra and extrarenal collecting system, with limited evaluation on the cu rrent CT for attenuation correction. 3. Left ureteral stent is identified and appears to be appropriately positioned. Results of study conveyed to Dr. Hi via [facility] on 11/09/18 at 1208 hours. CODE CR. POS: [facility]
== END 2018-11-09 10:31 | disposition home or self-care (01) ==
LOC: PET 10:30
PROVIDERS: ATTEND Internal Medicine Hematology & Oncology
DX: C53.9 Malignant neoplasm of cervix uteri, unspecified (principal); Z96.0 Presence of urogenital implants
CPT/HCPCS: 78815; A9552

== ENCOUNTER 2018-11-11 11:51 | Inpatient (IN) | payer OTHER ==
[2018-11-11] MEDS ORDERED: Fentanyl 100 MCG/2 ML VIAL ONE ×5 (13:04→16:22)
[2018-11-11] MEDS ORDERED: Lidocaine 1% PF 5 ML VIAL ONE (13:32)
[2018-11-11] MEDS ORDERED: PROPOFOL 200 MG/20 ML VIAL ONE (13:32)
[2018-11-11] MEDS ORDERED: Ondansetron PF 4 MG/2 ML Vial ONE (13:32)
[2018-11-11] MEDS ORDERED: Levofloxacin 500 mg/D5W 100 ml Premix Bag ONE (13:55)
[2018-11-11] MEDS ORDERED: Midazolam HCl 2 mg/2 ml Vial ONE ×2 (14:04→14:10)
[2018-11-11] MEDS ORDERED: B & O ONE (14:59)
[2018-11-11] MEDS ORDERED: Iothalamate Meglumine 60% 50 ML VIAL FS ONE (15:09)
[2018-11-11] MEDS ORDERED: Ondansetron HCl/PF 4 MG/2 ML Vial IVP PRN (15:24)
[2018-11-11] MEDS ORDERED: Promethazine HCl 25 MG/ML VIAL IM PRN ×3 (15:24→22:39)
[2018-11-11] MEDS ORDERED: Promethazine HCl 25 MG/ML VIAL SLOW IVP PRN (15:24)
[2018-11-11] MEDS ORDERED: Mag-Al 1200 mg/1200 mg/30 ML UDCUP PO PRN (16:40)
[2018-11-11] MEDS ORDERED: Bisacodyl 10 MG SUPP PR PRN (16:40)
[2018-11-11] MEDS ORDERED: Labetalol HCl 100 MG/20 ML VIAL ONE (17:24)
[2018-11-11] MEDS ORDERED: Naloxone HCl 0.4 mg/ml Vial IV PRN ×2 (17:25→22:39)
[2018-11-11] MEDS ORDERED: diphenhydrAMINE 25 MG CAP PO PRN ×2 (17:25→22:39)
[2018-11-11] MEDS ORDERED: Ondansetron PF 4 MG/2 ML Vial IVP PRN ×2 (17:25→22:39)
[2018-11-11] MEDS ORDERED: fentaNYL Citrate/PF 2,000 MCG in Sodium Chloride 0.9% 60 ML IV PRN (17:25)
[2018-11-11] MEDS ORDERED: Zolpidem Tartrate 5 MG TAB PO PRN ×2 (17:25→22:39)
[2018-11-11] MEDS ORDERED: diphenhydrAMINE 50 MG/ML VIAL IVP PRN ×2 (17:25→22:39)
[2018-11-11] MEDS ORDERED: diphenhydrAMINE 50 MG/ML VIAL IM PRN ×2 (17:25→22:39)
[2018-11-11] MEDS ORDERED: Communication Order-Pharmacy FS SCH ×2 (17:30→22:45)
[2018-11-11] MEDS: Sodium Chloride 0.9% 1,000 ML IV SCH (17:45)
[2018-11-11] MEDS ORDERED: cefTRIAXone\\ROCEPHIN 1 GM VIAL ONE (17:46)
[2018-11-11] MEDS ORDERED: Sodium Chloride 0.9% 100 ML ONE (17:47)
[2018-11-11] MEDS: cefTRIAXone\\ROCEPHIN 1 GM in Sodium Chloride 0.9% 100 ML IVPB SCH (17:49)
[2018-11-11] MEDS ORDERED: Labetalol HCl 100 MG/20 ML VIAL SLOW IVP SCH (18:15)
[2018-11-11 20:11] VITALS: BMI 26.7
[2018-11-11] MEDS: Docusate 100 MG CAP PO SCH (20:45)
[2018-11-11] MEDS: Famotidine/PF 20 mg/2ml Vial SLOW IVP SCH (20:46)
[2018-11-11] MEDS ORDERED: Morphine ER 30 MG TAB PO SCH (21:00)
--- NOTE | 2018-11-11 21:10 | RAD ---
Retrograde pyelogram one view: DATE: 11/11/2018 HISTORY: 53-year-old female with left obstructive uropathy due to malignant neoplasm of overlapping sites of t he cervix. FINDINGS: The attenuation correction CT of 11/09/2018 demonstrated a left ureteral stent. The current retrograde pyelogram consists of a single small [id number] of the pelvis. The left ure teral stent is no longer present. There is a pool of irregularly-shaped contrast material in the left lower portion of the pelvis, overlapped by cystoscope and a [id number] loop of wire. Ureters and renal collecting systems are not demonstrated. IMPRESSION: 1. Interval removal of left ureteral stent. 2. Pooling of contrast material in a collection in the lower pelvis. 3. Unsuccessful retrograde pyelogram.
[2018-11-11] MEDS ORDERED: Morphine CADD 1 MG/ML CADD IVPB PRN (22:39)
[2018-11-11] MEDS ORDERED: Morphine 4 MG/ML VIAL SLOW IVP SCH (22:45)
--- NOTE | 2018-11-11 22:46 | OP ---
DATE OF PROCEDURE: 11/11/2018 SERVICE: Urology Service. PREOPERATIVE DIAGNOSIS: Cervical cancer with left hydronephrosis. POSTOPERATIVE DIAGNOSES: Cervical cancer with left hydronephrosis and complete erosion and necrosis of the left distal ureter. PROCEDURE PERFORMED: Cystoscopy with attempted left ureteral stent exchange, left stent removal, left retrograde pyelogram, and left diagnostic ureteroscopy. INDICATIONS FOR PROCEDURE: Ms. Bruce is a 53-year-old white female with a history of advanced cervical cancer. She is receiving chemotherapy and radiation, but has a strong history of noncompliance. She has already undergone radiation and some chemo. On repeat staging, there does appear to be potential residual activity of cancer in the pelvis at the site of the tumor. The stent also seemed to be traversing what appeared to be a pelvic mass with some persistent hydronephrosis. She is slightly overdue for a stent exchange, hence we have opted to take her to the operating room for a left ureteral stent exchange with risks and benefits discussed, and she has agreed to proceed forward. She has not yet elected to proceed with hospice. DESCRIPTION OF PROCEDURE: After identification of armband and verification of consent, the patient was brought back to the operating room, where she underwent general anesthesia with an LMA. She was placed in dorsal lithotomy position and prepped and draped in usual sterile fashion. After appropriate time-out, a lubricated 22-Danish rigid cystoscope was introduced per urethra into the bladder. Immediately apparent was a significant amount of bullous edema with a left ureteral stent placed with some mild stone encrustation around the distal stent. There was a large mass effect on the posterior bladder wall secondary to the patient's known tumor. The right ureteral orifice is compressed, but it does appear patent. The stent was grasped with flexible graspers and brought out to the level of the urethral meatus. Attempts to feed a wire through the stent were unsuccessful given the amount of encrustation. The cystoscope was then introduced back into the bladder alongside the ureteral stent to where it could be seen emanating from the ureteral orifice. A 0.035 Sensor wire was attempted to be advanced alongside the left ureteral stent up to the level of the kidney, but the wire kept curling in the distal ureter and not advancing forward. This may be suspicious that the patient may have some kind of tortuosity or possible ureteral injury. Attempts to put a [place] catheter and perform a retrograde were unsuccessful with the stent in place, so the stent was grasped on the outside of the patient's body and removed entirely. A retrograde pyelogram was then performed with complete extravasation of contrast from the distal ureter into the retroperitoneum. To investigate this further, the cystoscope was removed along with the [place] catheter and a semi-rigid ureteroscope was brought in and advanced into the left distal ureter. The ureter was normal appearing for approximately 2 to 3 cm, at which point, it started to become dusky and irregular appearing with atrophic-type urothelium. The ureter then ends blindly in a large necrotic mass, which is white and fluffy, with liquefactive necrosis. There are no additional lumens or any evidence of false passage or any other type of lumen to suggest that there was some kind of ureteral injury or false passage created. In reality, I do strongly suspect based on the CT findings preoperatively that the cancer has completely eroded through and caused full-thickness necrosis of the ureter with no resultant ureter left. As such, it is going to be impossible to place ureteral stent in this individual. The ureteroscope was then withdrawn and all instruments removed. The bladder was drained with aid of the cystoscope and then removed. The patient was then awakened and taken to PACU for recovery in stable condition. COMPLICATIONS: None. ESTIMATED BLOOD LOSS: Minimal. RETAINED TUBES AND DRAINS: None. SPECIMENS: None. DISPOSITION: I have spoke with Dr. Hi, her primary medical oncologist, regarding her case, as well as the patient postoperatively and the . They do not feel that is quite appropriate or ready to consider hospice at this time. She still plans for further chemotherapy. The patient is anemic, and given that she is going to require a nephrostomy tube, we will go ahead and admit her to the hospital for nephrostomy tube placement tomorrow. I have already spoken with Dr. Tyree Estrada in Radiology, who will attempt to place a nephrostomy tube in her left flank tomorrow. We will go ahead and transfuse her 2 units, and then she can potentially be discharged to follow up with Dr. Hi next week to discuss ongoing chemotherapeutic and other medical management to try and treat this cancer versus discussion of hospice. Job ID: [id number]
[2018-11-12] MEDS: Morphine Sulfate 100 MG in Dextrose 5% in Water 98 ML IV SCH ×2 (00:07→18:16)
[2018-11-12] MEDS: HYDROmorphone 2 MG TAB PO PRN ×2 (02:18→06:08)
[2018-11-12] MEDS: hydrALAZINE 20 MG/ML VIAL SLOW IVP PRN (04:32)
[2018-11-12 07:13] LABS: #Eosinphils 0.2 thou/uL (0.0-0.7); #Lymphocytes 0.7 thou/uL (1.20-3.40); #Monocytes 0.6 thou/uL (0.11-0.59); %Basophils 0.1 % (0.0-1.0); %Eosinophils 0.9 % (0.0-10.0); %Lymphocytes 4.3 % (21.0-51.0); %Monocytes 3.8 % (0.0-10.0); %Neutrophils 90.9 % (42.0-75.0); Mean Corpuscular HGB CONC 32.2 g/dL (32.0-36.0); Mean Platelet Volume 7.7 fL (7.4-10.4); Platelet Count 457 thou/uL (130-400); RBC Distribution Width 15.4 % (11.5-14.5); Red Blood Cell (RBC) Count 3.79 mill/uL (4.20-5.40); White Blood Cell (WBC) Count 16.5 thou/uL (4.8-10.8)
[2018-11-12 07:18] LABS: INR-International Normal Ratio 1.2; PTT 34.5 SEC (22.9-36.1); Prothrombin Time 14.9 SEC (12.0-14.7)
[2018-11-12 07:58] LABS: Anion Gap 13 mmol/L (10-20); BUN (Urea Nitrogen) 7 mg/dL (9.8-20.1); Calc. Creatinine Clearance 88 mL/min (70-130); Calcium 8.8 mg/dL (7.8-10.44); Carbon Dioxide 27 mmol/L (22-29); Chloride 100 mmol/L (98-107); Estimated GFR-MDRD 75; Glucose 113 mg/dL (70-105); Potassium 3.4 mmol/L (3.5-5.1); Sodium 137 mmol/L (136-145)
[2018-11-12] MEDS ORDERED: Prevnar 13-Val Conj/PF 0.5 ML SYRINGE IM ONE (09:00)
[2018-11-12] MEDS ORDERED: fentaNYL 75 mcg/hour Patch TD SCH (09:00)
[2018-11-12] MEDS: Famotidine/PF 20 mg/2ml Vial SLOW IVP SCH ×2 (10:12→21:25)
[2018-11-12] MEDS: Docusate 100 MG CAP PO SCH ×2 (10:13→21:27)
[2018-11-12] MEDS: Lisinopril 20 MG TAB PO SCH (10:14)
[2018-11-12] MEDS: Potassium Chloride 20 MEQ TAB PO SCH (10:14)
[2018-11-12] MEDS: Sodium Chloride 0.9% 1,000 ML IV SCH ×2 (10:15→21:23)
[2018-11-12] MEDS: fentaNYL 75 mcg/hour Patch TD SCH (11:10)
[2018-11-12] MEDS ORDERED: Lidocaine 1% PF 5 ML VIAL ONE (12:30)
[2018-11-12] MEDS ORDERED: Sodium Bicarbonate 2.5 MEQ/5 ML VIAL ONE (12:30)
[2018-11-12] MEDS ORDERED: Fentanyl 100 MCG/2 ML VIAL ONE (12:30)
[2018-11-12] MEDS ORDERED: Midazolam HCl 2 mg/2 ml Vial ONE (12:31)
--- NOTE | 2018-11-12 14:45 | PRG ---
DATE OF SERVICE: 11/12/2018 SUBJECTIVE: The patient was found to have complete ureteral necrosis of the distal ureter yesterday. She had been scheduled for nephrostomy tube this morning. The patient has been still having ongoing pain in the pelvis secondary to her tumor with necrosis. She has not had any fevers. Still complaining of severe pain, which has been constant. She has not yet been ready for hospice. She went down to get a nephrostomy tube and was set and prepped, ready to go, with near beginning of the procedure, when she stated that she did not want to have the nephrostomy tube any more. She is now stating that she will only do the nephrostomy tube with general anesthesia, which was not arranged previously after discussing with the patient that we were going to do a nephrostomy tube today. I had spoke with the patient and explained to her in detail that without nephrostomy tube placement today, she would continue to leak urine into her retroperitoneum and likely develop severe sepsis and probably from this. She will not be a candidate for any more chemotherapy with urine in her retroperitoneum. I did speak with Dr. Hi, who states that she is already not a candidate for any more radiation or chemotherapy. Her only future option at this point would be consideration for pelvic exenteration if that is even possible at this point. Her white count is already increasing. I told her it would be best for her if she wanted to consider any further treatment to get the nephrostomy tube now, she refuses and states "I will take my chances, I am not doing a nephrostomy tube currently." I told the patient I cannot force her to do anything, and if she absolutely does not want to have the nephrostomy tube, then I will not push her to do so, but she will probably become septic and develop a severe infection and have a high risk of dying as a result of failing to go forward with the procedure that we had discussed. She states that she is fine with this. PHYSICAL EXAMINATION: VITAL SIGNS: Temperature 98.4, pulse 93, blood pressure 175/98, respirations 14, and saturation 95% on room air. GENERAL: Anxious, appears uncomfortable and in pain. CARDIOVASCULAR: Regular rate and rhythm. ABDOMEN: Diffusely tender to palpation. Positive bowel sounds. LABORATORY EVALUATION: White count is 16,500, hemoglobin 11. Creatinine is 0.80. ASSESSMENT AND PLAN: A 53-year-old white female with advanced cervical cancer, which has resulted in left-sided ureteral necrosis. She is likely leaking urine into retroperitoneum. She received 2 units of blood yesterday per the request of Dr. Hi, given her ongoing anemia. Her hemoglobin is much better today. However, her white count has increased. I am not entirely sure if this is due to the urine leak into her retroperitoneum versus transfusion related elevation in white count. In other case, the patient is refusing nephrostomy tube and as above, the patient has accepted all responsibility for any adverse consequences including sepsis and that may occur as a result of her not going through the nephrostomy tube today. We will keep her in the hospital over the weekend for pain control and antibiotics and make considerations for nephrostomy tube on Thursday. However, at this point, I am not really sure that a nephrostomy tube will be all that beneficial as she will already have leaked a significant amount of urine into her tumor, which will likely make her severely ill. We will discuss this further if she really wants to have a nephrostomy tube at all at a later point. Otherwise, I still think that the best option for this individual would be hospice. I will go ahead and consult Palliative Care again to come see her to have a discussion again whether she would rather go that route instead of trying to have so many procedures done since she is really in truth focused more on her symptoms and suffering rather than trying to get better. Dr. Solis will be on-call over the weekend and I will sign out fully to him. Job ID: [id number]
[2018-11-12] MEDS: cefTRIAXone\\ROCEPHIN 1 GM in Sodium Chloride 0.9% 100 ML IVPB SCH (17:39)
[2018-11-13] MEDS: Sodium Chloride 0.9% 1,000 ML IV SCH (10:16)
[2018-11-13] MEDS: Famotidine/PF 20 mg/2ml Vial SLOW IVP SCH ×2 (10:17→21:57)
[2018-11-13] MEDS: Lisinopril 20 MG TAB PO SCH (10:17)
[2018-11-13] MEDS: Docusate 100 MG CAP PO SCH ×2 (10:17→21:57)
[2018-11-13] MEDS: Potassium Chloride 20 MEQ TAB PO SCH (10:17)
--- NOTE | 2018-11-13 12:04 | PRG ---
DATE OF SERVICE: 11/13/2018 SUBJECTIVE: The patient states she is feeling okay. She still has her lower back pain and pelvic pain, although it is better than before. She is currently being seen by Anesthesia for pain management, which is working well for her. She had refused her nephrostomy tube previously and is now currently just draining urine into her pelvic mass, which is draining out the vagina, resulting in a terribly foul odor, but otherwise she has not had any fevers or any other symptoms of sepsis. OBJECTIVE: VITAL SIGNS: Temperature 98.4, pulse 94, respirations 16, blood pressure 180/88, and saturation 95% on room air. GENERAL: No apparent distress. Communicative and alert. CARDIOVASCULAR: Regular rate and rhythm. ABDOMEN: Soft. Tender to palpation diffusely, but less than before. Nondistended. : Deferred at this time. EXTREMITIES: No clubbing, cyanosis, or edema. LABORATORY EVALUATION: There are no new labs to review today. ASSESSMENT AND PLAN: A 53-year-old white female with large advanced cervical cancer with erosion and necrosis of the left distal ureter resulting in constant urine drainage into the pelvic mass. The patient refused a nephrostomy tube unless it is done with general anesthesia, which is currently scheduled for Thursday. I have told her that there is a high possibility that she will become septic and may pass away from this and has advanced cancer, which may ultimately be fatal despite best treatments for her surgery or any other form of therapy. She understands and states that she is still not ready to go for hospice, although she is willing to talk with the palliative care doctors. Additionally, her only option at this point would be a pelvic exenteration, which would be done by Dr. Goodwin, gynecologic oncologist, near [place]. It is still unclear whether or not the surgery would be even be feasible, but that would be the discretion of Dr. Goodwin. We will keep her here in the hospital until she receives her nephrostomy tube, at which point, I would strongly recommend immediate discharge and the patient going as expeditiously as possible to see Dr. Goodwin to see if it is even technically feasible to perform a pelvic exenteration. If it is not, then hospice would be the only option. If it is, then it will be up to the patient, decide if she wants to go through such an aggressive surgery which may or may not completely eradicate her cancer. For now, we will keep her on pain control and keep her on IV antibiotics and prepare for nephrostomy tube placement on Thursday. Job ID: [id number]
[2018-11-13] MEDS: Morphine Sulfate 100 MG in Dextrose 5% in Water 98 ML IV SCH (15:18)
[2018-11-13] MEDS: cefTRIAXone\\ROCEPHIN 1 GM in Sodium Chloride 0.9% 100 ML IVPB SCH (17:33)
[2018-11-13] MEDS: hydrALAZINE 20 MG/ML VIAL SLOW IVP PRN (23:09)
[2018-11-14] MEDS: Sodium Chloride 0.9% 1,000 ML IV SCH ×2 (01:04→13:41)
[2018-11-14 04:28] LABS: #Eosinphils 0.2 thou/uL (0.0-0.7); #Lymphocytes 0.6 thou/uL (1.20-3.40); #Monocytes 0.6 thou/uL (0.11-0.59); #Neutrophils 9.3 thou/uL (1.40-6.50); %Basophils 0.2 % (0.0-1.0); %Eosinophils 1.9 % (0.0-10.0); %Lymphocytes 5.7 % (21.0-51.0); %Monocytes 5.9 % (0.0-10.0); %Neutrophils 86.3 % (42.0-75.0); Hemoglobin 11.1 g/dL (12.0-16.0); Mean Corpuscular Hemoglobin 29.3 pg (27.0-31.0); Mean Corpuscular Volume 91.4 fL (78.0-98.0); Mean Platelet Volume 7.7 fL (7.4-10.4); Platelet Count 359 thou/uL (130-400); RBC Distribution Width 15.5 % (11.5-14.5); Red Blood Cell (RBC) Count 3.78 mill/uL (4.20-5.40); White Blood Cell (WBC) Count 10.8 thou/uL (4.8-10.8)
[2018-11-14 04:51] LABS: Anion Gap 12 mmol/L (10-20); BUN (Urea Nitrogen) 6 mg/dL (9.8-20.1); Calc. Creatinine Clearance 85 mL/min (70-130); Calcium 8.8 mg/dL (7.8-10.44); Carbon Dioxide 28 mmol/L (22-29); Chloride 102 mmol/L (98-107); Estimated GFR-MDRD 75; Glucose 115 mg/dL (70-105); Potassium 3.1 mmol/L (3.5-5.1); Sodium 139 mmol/L (136-145)
[2018-11-14] MEDS: Morphine Sulfate 100 MG in Dextrose 5% in Water 98 ML IV SCH (08:36)
[2018-11-14] MEDS: Lisinopril 20 MG TAB PO SCH (08:37)
[2018-11-14] MEDS: Docusate 100 MG CAP PO SCH ×2 (08:37→22:27)
[2018-11-14] MEDS: Famotidine/PF 20 mg/2ml Vial SLOW IVP SCH ×2 (08:40→22:28)
[2018-11-14] MEDS: Potassium Chloride 20 MEQ TAB PO SCH (08:40)
[2018-11-14] MEDS: cefTRIAXone\\ROCEPHIN 1 GM in Sodium Chloride 0.9% 100 ML IVPB SCH (17:04)
[2018-11-15] MEDS: hydrALAZINE 20 MG/ML VIAL SLOW IVP PRN (00:23)
[2018-11-15] MEDS: Sodium Chloride 0.9% 1,000 ML IV SCH ×2 (03:35→14:20)
[2018-11-15] MEDS: Potassium Chloride 20 MEQ TAB PO SCH (07:57)
[2018-11-15] MEDS: Lisinopril 20 MG TAB PO SCH (07:57)
[2018-11-15] MEDS: Docusate 100 MG CAP PO SCH ×2 (07:57→21:42)
[2018-11-15] MEDS: Famotidine/PF 20 mg/2ml Vial SLOW IVP SCH ×2 (08:00→21:42)
[2018-11-15] MEDS ORDERED: Fentanyl 100 MCG/2 ML VIAL ONE (10:08)
[2018-11-15] MEDS ORDERED: Lidocaine 2% Jelly 5 ML TUBE ONE (10:08)
[2018-11-15] MEDS ORDERED: Sodium Bicarbonate 2.5 MEQ/5 ML VIAL ONE (10:54)
[2018-11-15] MEDS ORDERED: Ondansetron HCl/PF 4 MG/2 ML Vial IVP PRN (12:19)
[2018-11-15] MEDS ORDERED: Promethazine HCl 25 MG/ML VIAL SLOW IVP PRN (12:19)
[2018-11-15] MEDS ORDERED: Promethazine HCl 25 MG/ML VIAL IM PRN (12:19)
[2018-11-15] MEDS: fentaNYL 75 mcg/hour Patch TD SCH (14:05)
[2018-11-15] MEDS: Morphine Sulfate 100 MG in Dextrose 5% in Water 98 ML IV SCH (14:09)
--- NOTE | 2018-11-15 14:36 | SPC ---
EXAM: SPC NEPHROS CATH NEW ACCESS PROVIDED CLINICAL HISTORY: Left hydronephrosis. Placement of percutaneous nephrostomy tube was requested. COMPARISON: None TECHNIQUE: Informed consent was obtained. The patient was intubated, and anesthesia was performed by the anesthe siology department as requested by the patient. Limited sonographic evaluation of the left kidney demonstrates left hydronephrosis. An area was marked and then meticulously prepped and draped in usua l sterile fashion. Skin and subcutaneous tissues were infiltrated with buffered 1% lidocaine for local anesthesia. An in ferior pole posterior calyx was accessed utilizing ultrasound guidance. Antegrade nephrostogram was obtained demonstrating hydronephrosis and hydroureter. The needle was exchanged over a 0.018 inch vaughn dewire for a 5 Ukrainian introducer sheath. Contrast was again injected confirming placement in the collecting system. The catheter was exchanged over a 0.035 inch Amplatz guidewire for an 8 Ukrainian tis coby dilator followed by placement of an 8 [place] percutaneous nephrostomy tube. Distal portion of the nephrostomy tube was coiled within the renal pelvis. Guidewire was removed, and there is a return of cloudy urine. Contrast injection again confirms placement. Catheter was placed to gravity drainage and sutured in place utilizing 2-0 Ethilon suture material. A dry sterile dressing was place d. Patient tolerated the procedure well and without immediate complication. Fluoroscopy: Time-0.7 minutes Total dose 1856 mGy centimeter squared IMPRESSION: 1. Left hydronephrosis. 2. Technically successful left 8 Ukrainian percutaneous nephrostomy tube placement.
[2018-11-15] MEDS: cefTRIAXone\\ROCEPHIN 1 GM in Sodium Chloride 0.9% 100 ML IVPB SCH (16:46)
[2018-11-15] MEDS ORDERED: PHENYLEPHRINE-NS 100 MCG/ML 10 ML SYRINGE ONE (17:10)
[2018-11-15] MEDS ORDERED: Rocuronium Bromide 10 MG/ML (10ML VIAL) ONE (17:10)
[2018-11-15] MEDS ORDERED: PROPOFOL 200 MG/20 ML VIAL ONE (17:10)
[2018-11-15] MEDS ORDERED: Ondansetron PF 4 MG/2 ML Vial ONE (17:10)
[2018-11-15] MEDS ORDERED: Lidocaine 1% PF 5 ML VIAL ONE (17:10)
[2018-11-15] MEDS ORDERED: ePHEDrine 50 MG/ML VIAL ONE (17:10)
[2018-11-15] MEDS ORDERED: Glycopyrrolate 0.2 MG/ML 5 ML SYRINGE ONE (17:10)
[2018-11-15] MEDS ORDERED: Dexamethasone 20 MG/5 ML VIAL ONE (17:10)
[2018-11-16] MEDS: Sodium Chloride 0.9% 1,000 ML IV SCH ×2 (06:53→17:41)
[2018-11-16] MEDS: Potassium Chloride 20 MEQ TAB PO SCH (09:24)
[2018-11-16] MEDS: Lisinopril 20 MG TAB PO SCH (09:24)
[2018-11-16] MEDS: Docusate 100 MG CAP PO SCH (09:24)
[2018-11-16] MEDS: Famotidine/PF 20 mg/2ml Vial SLOW IVP SCH (09:30)
[2018-11-16 12:03] VITALS: TEMP 98
[2018-11-16] MEDS: cefTRIAXone\\ROCEPHIN 1 GM in Sodium Chloride 0.9% 100 ML IVPB SCH (16:35)
[2018-11-16 17:43] VITALS: BP 158/88
[2018-11-16] MEDS ORDERED: Morphine ER 30 MG TAB PO SCH (18:00)
--- NOTE | 2018-11-16 18:29 | PRG ---
DATE OF SERVICE: 11/16/2018 SUBJECTIVE: The patient states she is still having a lot of pelvic discomfort. The CAP AND HAT PRODUCTION SUPERVISOR is working well for her. She is going down for nephrostomy tube placement today. OBJECTIVE: VITAL SIGNS: Stable. GENERAL: In no apparent distress. Communicative and alert. CARDIOVASCULAR: Regular rate and rhythm. ABDOMEN: Soft. Tender to palpation diffusely, stable from previous. Nondistended. EXTREMITIES: No edema. LABORATORY DATA: Full set of labs in the [facility] system, which I have reviewed. Of note, the patient's white count is 10.8 with hemoglobin of 11.1. Creatinine is 0.8. ASSESSMENT AND PLAN: A 53-year-old white female with advanced cervical cancer with necrosis and controlled fistula with drainage of urine into the tumor and then out the vagina is going for nephrostomy tube to attempt to divert urine away from the tumor, although this is probably not going to be overall successful. She is no longer a candidate for chemotherapy or radiation. The only option at this point, if she does not opt for hospice, which she states she does not want to go for hospice yet, would be pelvic exenteration surgery. Her gynecologic oncologist, Dr. Goodwin in the [place], can follow up with her as an outpatient to determine this. Once she has a nephrostomy tube placed, we will discharge her home and she can follow up to see me in approximately 6 months with nephrostomy tube changes done every 2 months in Radiology. Job ID: [id number]
--- NOTE | 2018-11-17 01:59 | DIS ---
DATE OF ADMISSION: 11/11/2018 DATE OF DISCHARGE: 11/16/2018 ADMITTING DIAGNOSIS: Advanced cervical cancer with left hydronephrosis and ureteral necrosis. DISCHARGE DIAGNOSIS: Advanced cervical cancer with left hydronephrosis and ureteral necrosis. PROCEDURE PERFORMED ON PATIENT: 1. Cystoscopy with left retrograde pyelogram, diagnostic ureteroscopy and removal of left ureteral stent. 2. Left nephrostomy tube placement. CONSULT: From Anesthesia for pain control. BRIEF HISTORY: Ms. Bruce is a 53-year-old white female with advanced cervical cancer. She is extremely noncompliant and has not done her chemotherapy or radiation therapies as she was supposed to. She is now coming in for ureteral stent exchange to the hospital. Upon undergoing the procedure, she was found to have advanced necrosis of the left ureter requiring a nephrostomy tube placement. Due to being unable to do this on the same day of the procedure, she is being admitted to the hospital. HOSPITAL COURSE: After her surgery (please see operative note for details), the patient was admitted to the hospital so that she could undergo a left nephrostomy tube placement. She was kept in the hospital overnight with Anesthesia consult for pain control. They started her on a MAINFRAME PROGRAMMER ANALYST. On hospital day #1, the patient went down to Interventional Radiology for placement of a tube. We had discussed the procedure previously, which she had agreed to. Unfortunately, she had a panic episode and stated that she did not want a nephrostomy tube. I had a discussion with her at that time stating that without the nephrostomy tube, she could potentially get sicker and have her cancer become more advanced with more urine leakage, possible sepsis and worsening infection. She stated that she would not do the nephrostomy tube with or without general anesthesia. Due to it being Thursday, she was unable to get scheduled for nephrostomy tube as it was not emergent. Over the weekend until Thursday, at which point, she did go down for her nephrostomy tube placement under general anesthesia. The nephrostomy was placed successfully and subsequently, she was discharged home on her current pain regimen. She is to follow up with Dr. Goodwin in Gynecologic Oncology in the [place] for consideration of a pelvic exenteration. Dr. Hi has been in contact with me throughout the hospitalization. She was found to be chronically anemic with a hemoglobin of 7. Dr. Hi was planning to give a blood transfusion and stated that since she was being put in the hospital, she may as well get 2 units of blood as she is chronically anemic and chronically losing red blood cells without proper replacement. Her hemoglobin after transfusion came up to 11, indicating that she probably was a little bit less anemic prior to the transfusion; however, she should be well situated to keep her hemoglobin stable for at least some time subsequently. Dr. Hi also stated that she was no longer a candidate for chemotherapy as she has already given her significant amount of chemo and the patient has been noncompliant. Dr. Whipple, who was administered radiation also stated that she is no longer a candidate for further radiation treatments. DISPOSITION: Discharged to home. DISCHARGE CONDITION: Stable. DISCHARGE MEDICATIONS: Resuming all of her home medications including her home pain regimen. No new medications were added except Omnicef 200 mg p.o. b.i.d. for 7 additional days. FOLLOWUP: Followup with me will be in approximately 6 months, with Interventional Radiology appointment q.2 months for a nephrostomy tube changes. Job ID: [id number]
== END 2018-11-16 18:03 | disposition home or self-care (01) | DRG 755 ==
LOC: SDC 11:51 → SJJU 15:57
PROVIDERS: ADMIT Urology; ATTEND Urology
PROC: 0TP98DZ Removal of Intraluminal Device from Ureter, Via Natural or Artificial Opening Endoscopic (ICD-10-PCS; principal; 2018-11-11)
PROC: BT1F1ZZ Fluoroscopy of Left Kidney, Ureter and Bladder using Low Osmolar Contrast (ICD-10-PCS; 2018-11-11)
PROC: 0T943ZZ Drainage of Left Kidney Pelvis, Percutaneous Approach (ICD-10-PCS; 2018-11-11)
PROC: 0T9330Z Drainage of Right Kidney Pelvis with Drainage Device, Percutaneous Approach (ICD-10-PCS; 2018-11-11)
PROC: 30233N1 Transfusion of Nonautologous Red Blood Cells into Peripheral Vein, Percutaneous Approach (ICD-10-PCS; 2018-11-12)
DX: C53.9 Malignant neoplasm of cervix uteri, unspecified (principal); N13.30 Unspecified hydronephrosis; I10 Essential (primary) hypertension; N28.89 Other specified disorders of kidney and ureter; D64.9 Anemia, unspecified; Z98.51 Tubal ligation status; Z86.73 Personal history of transient ischemic attack (TIA), and cerebral infarction without residual deficits; Z87.11 Personal history of peptic ulcer disease; Z91.14 Patient's other noncompliance with medication regimen
CPT/HCPCS: 36415; 36430; 50430; 50432; 74420; 80048; 85025; 85610; 85730; 86850; 86870; 86900; 86901; 86905; 86922; 90471; 90670; C1729; C1758; C1769; G0009; J0360; J0696; J1200; J1956; J2001; J2250; J2270; J2274; J3010; J3490; J7070; P9016; S0028